=== PATIENT | male | born 1960 | race Caucasian/White ===

== ENCOUNTER 2019-01-06 07:59 | Emergency (ER) | payer OTHER ==
[~2019-01-06] VITALS: Ht 177.8 cm; Wt 113.4 kg
--- OUTSIDE RECORDS SUMMARY | 2019-01-06 08:04 | XMS REPORT | Continuity of Care Document ---
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 patients with extremes of body mass index for purposes of drug dosing, the eGFR should be multiplied by the estimated BMI. [facility] CHEM PANEL CO2 26 24 - 32 10/09/2017 [facility] CHEM PANEL Sodium Lvl 140 135 - 145 10/09/2017 [facility] CHEM PANEL Chloride Lvl 105 95 - 109 10/09/2017 [facility] CHEM PANEL Potassium Lvl 4.0 3.5 - 5.1 10/09/2017 [facility] CHEM PANEL Alk Phos 113 39 - 136 10/09/2017 [facility] CHEM PANEL ALT 54 0 - 65 10/09/2017 [facility] CHEM PANEL AST 25 0 - 37 10/09/2017 [facility] CHEM PANEL Creatinine Lvl 0.99 0.50 - 1.40 10/09/2017 [facility] CHEM PANEL Glucose Lvl 96 70 - 99 10/09/2017 [facility] CHEM PANEL BUN 14 7 - 22 10/09/2017 [facility] CHEM PANEL Total Protein 7.0 6.4 - 8.4 10/09/2017 [facility] CHEM PANEL Albumin Lvl 3.4 3.5 - 5.0 10/09/2017 [facility] CHEM PANEL Calcium Lvl 8.7 8.5 - 10.5 10/09/2017 [facility] CHEM PANEL Bili Total 0.5 0.2 - 1.3 10/09/2017 [facility] HEMATOLOGY Eosinophils # 0.1 0.0 - 0.5 10/09/2017 [facility] HEMATOLOGY Monocytes # 0.4 0.0 - 0.8 10/09/2017 [facility] HEMATOLOGY Lymphocytes # 1.9 1.0 - 5.5 10/09/2017 [facility] HEMATOLOGY Segs-Bands # 5.2 1.5 - 8.1 10/09/2017 [facility] HEMATOLOGY Basophils 0.3 0.0 - 1.0 10/09/2017 [facility] HEMATOLOGY Eosinophils 1.6 0.0 - 4.0 10/09/2017 [facility] HEMATOLOGY Monocytes 5.8 2.0 - 12.0 10/09/2017 [facility] HEMATOLOGY Lymphocytes 25.2 20.0 - 40.0 10/09/2017 [facility] HEMATOLOGY Segs 67.1 45.0 - 75.0 10/09/2017 [facility] HEMATOLOGY Hct 46.3 42.0 - 54.0 10/09/2017 [facility] HEMATOLOGY MCH 28.6 27.0 - 31.0 10/09/2017 [facility] HEMATOLOGY MCV 84.9 80.0 - 94.0 10/09/2017 [facility] MCHC 33.7 32.0 - 36.0 10/09/2017 [facility] RDW 13.0 11.5 - 14.5 10/09/2017 [facility] HEMATOLOGY MPV 7.3 7.4 - 10.4 10/09/2017 [facility] Platelet 303 133 - 450 10/09/2017 [facility] RBC 5.45 4.70 - 6.10 10/09/2017 [facility] WBC 7.6 3.7 - 10.4 10/09/2017 [facility] Hgb 15.6 14.0 - 18.0 10/09/2017 [facility] CARDIAC ENZYMES Troponin-I <0.02 0.00 - 0.40 07/02/2017 [facility] CHEM PANEL Lipase Lvl 78 73 - 393 07/02/2017 [facility] ELECTROLYTES AGAP 11.0 10.0 - 20.0 07/02/2017 [facility] ELECTROLYTES A/G Ratio 0.9 0.7 - 1.6 07/02/2017 [facility] ELECTROLYTES Globulin 3.9 2.7 - 4.2 07/02/2017 [facility] ELECTROLYTES B/C Ratio 10 6 - 25 07/02/2017 [facility] ELECTROLYTES eGFR 79 07/02/2017 Result Comment: The eGFR is calculated using the CKD-EPI formula. In most young, healthy individuals the eGFR will be >90 mL/min/1.73m2. The eGFR declines with age. An eGFR of 60-89 may be normal in some populations, particularly the elderly, for whom the CKD-EPI formula has not been extensively validated. Use of the eGFR is not recommended in the following populations:

Individuals with unstable creatinine concentrations, including patients and those with serious co-morbid conditions.

Patients with extremes in muscle mass or diet.

The data above are obtained from the National Kidney Disease Education Program (NKDEP) which additionally recommends that when the eGFR is used in patients with extremes of body mass index for purposes of drug dosing, the eGFR should be multiplied by the estimated BMI. [facility] ELECTROLYTES Creatinine Lvl 1.04 0.50 - 1.40 07/02/2017 [facility] ELECTROLYTES BUN 10 7 - 22 07/02/2017 [facility] ELECTROLYTES Glucose Lvl 96 70 - 99 07/02/2017 [facility] ELECTROLYTES Sodium Lvl 139 135 - 145 07/02/2017 [facility] ELECTROLYTES Chloride Lvl 102 95 - 109 07/02/2017 [facility] ELECTROLYTES Potassium Lvl 4.0 3.5 - 5.1 07/02/2017 [facility] ELECTROLYTES Albumin Lvl 3.4 3.5 - 5.0 07/02/2017 [facility] ELECTROLYTES Total Protein 7.3 6.4 - 8.4 07/02/2017 [facility] ELECTROLYTES Calcium Lvl 8.8 8.5 - 10.5 07/02/2017 [facility] ELECTROLYTES CO2 30 24 - 32 07/02/2017 [facility] ELECTROLYTES ALT 24 0 - 65 07/02/2017 [facility] ELECTROLYTES Bili Total 1.0 0.2 - 1.3 07/02/2017 [facility] ELECTROLYTES Alk Phos 99 39 - 136 07/02/2017 [facility] ELECTROLYTES AST 15 0 - 37 07/02/2017 [facility] HEMATOLOGY Hgb 15.9 14.0 - 18.0 07/02/2017 [facility] HEMATOLOGY RBC 5.51 4.70 - 6.10 07/02/2017 [facility] HEMATOLOGY WBC 8.3 3.7 - 10.4 07/02/2017 [facility] HEMATOLOGY RDW 12.5 11.5 - 14.5 07/02/2017 [facility] HEMATOLOGY Platelet 299 133 - 450 07/02/2017 [facility] HEMATOLOGY MCHC 33.8 32.0 - 36.0 07/02/2017 [facility] HEMATOLOGY MCH 28.9 27.0 - 31.0 07/02/2017 [facility] HEMATOLOGY MCV 85.5 80.0 - 94.0 07/02/2017 [facility] HEMATOLOGY Hct 47.1 42.0 - 54.0 07/02/2017 [facility] HEMATOLOGY MPV 7.6 7.4 - 10.4 07/02/2017 [facility] HEMATOLOGY Eosinophils # 0.3 0.0 - 0.5 07/02/2017 [facility] HEMATOLOGY Monocytes # 0.5 0.0 - 0.8 07/02/2017 [facility] HEMATOLOGY Lymphocytes # 2.4 1.0 - 5.5 07/02/2017 [facility] HEMATOLOGY Eosinophils 4.1 0.0 - 4.0 07/02/2017 [facility] HEMATOLOGY Basophils 0.2 0.0 - 1.0 07/02/2017 [facility] HEMATOLOGY Segs-Bands # 5.1 1.5 - 8.1 07/02/2017 [facility] HEMATOLOGY Monocytes 6.6 2.0 - 12.0 07/02/2017 [facility] HEMATOLOGY Lymphocytes 29.0 20.0 - 40.0 07/02/2017 [facility] HEMATOLOGY Segs 60.1 45.0 - 75.0 07/02/2017 [facility] URINE AND STOOL UA Turbidity Clear (07/02/17 10:46 AM) Clear 07/02/2017 [facility] URINE AND STOOL UA Color Yellow *NA* (07/02/17 10:46 AM) Yellow 07/02/2017 [facility] URINE AND STOOL UA Urobilinogen 0.2 0.1 - 1.0 07/02/2017 [facility] URINE AND STOOL UA Bili Negative *NA* (07/02/17 10:46 AM) Negative 07/02/2017 [facility] URINE AND STOOL UA Blood Negative (07/02/17 10:46 AM) Negative 07/02/2017 [facility] URINE AND STOOL UA Ketones Negative mg/dL Negative mg/dL 07/02/2017 [facility] URINE AND STOOL UA Spec Grav 1.010 <=1.030 07/02/2017 [facility] URINE AND STOOL UA Protein Negative mg/dL Negative mg/dL 07/02/2017 [facility] URINE AND STOOL UA Glucose Negative mg/dL Negative mg/dL 07/02/2017 [facility] URINE AND STOOL UA pH 6.5 5.0 - 8.0 07/02/2017 [facility] URINE AND STOOL UA Leuk Est Negative (07/02/17 10:46 AM) Negative 07/02/2017 [facility] URINE AND STOOL UA Nitrite Negative (07/02/17 10:46 AM) Negative 07/02/2017 [facility] URINE AND STOOL UA Bacteria None Seen (07/02/17 10:46 AM) None Seen 07/02/2017 [facility] URINE AND STOOL UA Mucus Moderate /LPF None Seen /LPF 07/02/2017 [facility] URINE AND STOOL UA Sq Epi Rare /LPF Few /LPF 07/02/2017 [facility] URINE AND STOOL UA RBC None Seen (07/02/17 10:46 AM) 0 - 2 07/02/2017 [facility] URINE AND STOOL UA WBC None Seen (07/02/17 10:46 AM) None Seen 07/02/2017 [facility] CHEM PANEL Calcium Lvl 8.1 8.5 - 10.5 07/01/2017 [facility] CHEM PANEL CO2 28 24 - 32 07/01/2017 [facility] CHEM PANEL AGAP 9.1 10.0 - 20.0 07/01/2017 [facility] CHEM PANEL eGFR 82 07/01/2017 Result Comment: The eGFR is calculated using the CKD-EPI formula. In most young, healthy individuals the eGFR will be >90 mL/min/1.73m2. The eGFR declines with age. An eGFR of 60-89 may be normal in some populations, particularly the elderly, for whom the CKD-EPI formula has not been extensively validated. Use of the eGFR is not recommended in the following populations:

Individuals with unstable creatinine concentrations, including patients and those with serious co-morbid conditions.

Patients with extremes in muscle mass or diet.

The data above are obtained from the National Kidney Disease Education Program (NKDEP) which additionally recommends that when the eGFR is used in patients with extremes of body mass index for purposes of drug dosing, the eGFR should be multiplied by the estimated BMI. [facility] CHEM PANEL Glucose Lvl 98 70 - 99 07/01/2017 [facility] CHEM PANEL BUN 12 7 - 22 07/01/2017 [facility] CHEM PANEL Potassium Lvl 4.1 3.5 - 5.1 07/01/2017 [facility] CHEM PANEL Sodium Lvl 140 135 - 145 07/01/2017 [facility] CHEM PANEL Chloride Lvl 107 95 - 109 07/01/2017 [facility] CHEM PANEL Creatinine Lvl 1.01 0.50 - 1.40 07/01/2017 [facility] CHEM PANEL Magnesium Lvl 2.1 1.8 - 2.4 07/01/2017 [facility] CHEM PANEL Phosphorus 2.8 2.5 - 4.5 07/01/2017 [facility] HEMATOLOGY MCH 29.2 27.0 - 31.0 07/01/2017 [facility] HEMATOLOGY RDW 13.4 11.5 - 14.5 07/01/2017 [facility] HEMATOLOGY MCHC 34.2 32.0 - 36.0 07/01/2017 [facility] HEMATOLOGY MPV 7.3 7.4 - 10.4 07/01/2017 [facility] HEMATOLOGY Platelet 245 133 - 450 07/01/2017 [facility] HEMATOLOGY RBC 5.31 4.70 - 6.10 07/01/2017 [facility] HEMATOLOGY WBC 9.3 3.7 - 10.4 07/01/2017 [facility] HEMATOLOGY MCV 85.4 80.0 - 94.0 07/01/2017 [facility] HEMATOLOGY Hct 45.3 42.0 - 54.0 07/01/2017 [facility] HEMATOLOGY Hgb 15.5 14.0 - 18.0 07/01/2017 [facility] HEMATOLOGY INR 0.99 0.85 - 1.17 07/01/2017 [facility] HEMATOLOGY PTT 31.5 22.9 - 35.8 07/01/2017 [facility] HEMATOLOGY PT 13.1 12.0 - 14.7 07/01/2017 [facility] HEMATOLOGY Segs 62.5 45.0 - 75.0 07/01/2017 [facility] HEMATOLOGY Lymphocytes 28.1 20.0 - 40.0 07/01/2017 [facility] HEMATOLOGY Eosinophils 2.3 0.0 - 4.0 07/01/2017 [facility] HEMATOLOGY Segs-Bands # 5.8 1.5 - 8.1 07/01/2017 [facility] HEMATOLOGY Eosinophils # 0.2 0.0 - 0.5 07/01/2017 [facility] HEMATOLOGY Monocytes # 0.6 0.0 - 0.8 07/01/2017 [facility] HEMATOLOGY Monocytes 6.8 2.0 - 12.0 07/01/2017 [facility] HEMATOLOGY Basophils 0.3 0.0 - 1.0 07/01/2017 [facility] HEMATOLOGY Lymphocytes # 2.6 1.0 - 5.5 07/01/2017 [facility] CARDIAC ENZYMES CK MB <1.0 0.5 - 3.6 06/30/2017 [facility] CARDIAC ENZYMES Total CK 60 12 - 191 06/30/2017 [facility] CARDIAC ENZYMES Troponin-I <0.02 0.00 - 0.40 06/30/2017 [facility] CARDIAC ENZYMES CK MB Index <1.7 0.0 - 2.5 06/30/2017 [facility] CHEM PANEL Lipase Lvl 78 73 - 393 06/30/2017 [facility] CHEM PANEL eGFR 77 06/30/2017 Result Comment: The eGFR is calculated using the CKD-EPI formula. In most young, healthy individuals the eGFR will be >90 mL/min/1.73m2. The eGFR declines with age. An eGFR of 60-89 may be normal in some populations, particularly the elderly, for whom the CKD-EPI formula has not been extensively validated. Use of the eGFR is not recommended in the following populations:

Individuals with unstable creatinine concentrations, including patients and those with serious co-morbid conditions.

Patients with extremes in muscle mass or diet.

The data above are obtained from the National Kidney Disease Education Program (NKDEP) which additionally recommends that when the eGFR is used in patients with extremes of body mass index for purposes of drug dosing, the eGFR should be multiplied by the estimated BMI. [facility] CHEM PANEL Albumin Lvl 3.3 3.5 - 5.0 06/30/2017 [facility] CHEM PANEL ALT 34 0 - 65 06/30/2017 [facility] CHEM PANEL AST 16 0 - 37 06/30/2017 [facility] CHEM PANEL Alk Phos 111 39 - 136 06/30/2017 [facility] CHEM PANEL B/C Ratio 12 6 - 25 06/30/2017 [facility] CHEM PANEL Globulin 4.0 2.7 - 4.2 06/30/2017 [facility] CHEM PANEL A/G Ratio 0.8 0.7 - 1.6 06/30/2017 [facility] CHEM PANEL Bili Total 1.0 0.2 - 1.3 06/30/2017 [facility] CHEM PANEL AGAP 11.1 10.0 - 20.0 06/30/2017 [facility] CHEM PANEL Glucose Lvl 117 70 - 99 06/30/2017 [facility] CHEM PANEL Potassium Lvl 4.1 3.5 - 5.1 06/30/2017 [facility] CHEM PANEL Sodium Lvl 138 135 - 145 06/30/2017 [facility] CHEM PANEL Chloride Lvl 106 95 - 109 06/30/2017 [facility] CHEM PANEL Creatinine Lvl 1.07 0.50 - 1.40 06/30/2017 [facility] CHEM PANEL CO2 25 24 - 32 06/30/2017 [facility] CHEM PANEL Total Protein 7.3 6.4 - 8.4 06/30/2017 [facility] CHEM PANEL Calcium Lvl 8.8 8.5 - 10.5 06/30/2017 [facility] CHEM PANEL BUN 13 7 - 22 06/30/2017 [facility] HEMATOLOGY Platelet 318 133 - 450 06/30/2017 [facility] HEMATOLOGY MPV 7.6 7.4 - 10.4 06/30/2017 [facility] HEMATOLOGY MCHC 33.7 32.0 - 36.0 06/30/2017 [facility] HEMATOLOGY RDW 12.7 11.5 - 14.5 06/30/2017 [facility] HEMATOLOGY MCH 28.4 27.0 - 31.0 06/30/2017 [facility] HEMATOLOGY MCV 84.2 80.0 - 94.0 06/30/2017 [facility] HEMATOLOGY Hct 49.6 42.0 - 54.0 06/30/2017 [facility] HEMATOLOGY Hgb 16.7 14.0 - 18.0 06/30/2017 [facility] HEMATOLOGY RBC 5.89 4.70 - 6.10 06/30/2017 [facility] HEMATOLOGY WBC 11.0 3.7 - 10.4 06/30/2017 [facility] HEMATOLOGY Lymphocytes 23.4 20.0 - 40.0 06/30/2017 [facility] HEMATOLOGY Monocytes 5.1 2.0 - 12.0 06/30/2017 [facility] HEMATOLOGY Eosinophils 1.8 0.0 - 4.0 06/30/2017 [facility] HEMATOLOGY Segs 69.5 45.0 - 75.0 06/30/2017 [facility] HEMATOLOGY Monocytes # 0.6 0.0 - 0.8 06/30/2017 [facility] HEMATOLOGY Eosinophils # 0.2 0.0 - 0.5 06/30/2017 [facility] HEMATOLOGY Basophils 0.2 0.0 - 1.0 06/30/2017 [facility] HEMATOLOGY Segs-Bands # 7.6 1.5 - 8.1 06/30/2017 [facility] HEMATOLOGY Lymphocytes # 2.6 1.0 - 5.5 06/30/2017 [facility] URINE AND STOOL UA Leuk Est Negative (02/26/17 4:36 PM) Negative 02/26/2017 [facility] URINE AND STOOL UA Glucose Negative (02/26/17 4:36 PM) Negative 02/26/2017 [facility] URINE AND STOOL UA Protein Negative (02/26/17 4:36 PM) Negative 02/26/2017 [facility] URINE AND STOOL UA Nitrite Negative (02/26/17 4:36 PM) Negative 02/26/2017 [facility] URINE AND STOOL UA Bili Negative *NA* (02/26/17 4:36 PM) Negative 02/26/2017 [facility] URINE AND STOOL UA Urobilinogen 0.2 0.1 - 1.0 02/26/2017 [facility] URINE AND STOOL UA Blood Negative (02/26/17 4:36 PM) Negative 02/26/2017 [facility] URINE AND STOOL UA Spec Grav <=1.005 *NA* (02/26/17 4:36 PM) <=1.030 02/26/2017 [facility] URINE AND STOOL UA Ketones Negative *NA* (02/26/17 4:36 PM) Negative 02/26/2017 [facility] URINE AND STOOL UA Color Yellow *NA* (02/26/17 4:36 PM) Yellow 02/26/2017 [facility] URINE AND STOOL UA pH 6.0 5.0 - 8.0 02/26/2017 [facility] URINE AND STOOL UA Turbidity Clear (02/26/17 4:36 PM) Clear 02/26/2017 [facility] URINE AND STOOL UA Bacteria None Seen (02/26/17 4:36 PM) None Seen 02/26/2017 [facility] URINE AND STOOL UA WBC None Seen (02/26/17 4:36 PM) None Seen 02/26/2017 [facility] URINE AND STOOL UA RBC None Seen (02/26/17 4:36 PM) 0 - 2 02/26/2017 [facility] URINE AND STOOL UA Sq Epi None Seen (02/26/17 4:36 PM) Few 02/26/2017 [facility] CARDIAC ENZYMES Troponin-I <0.02 0.00 - 0.40 02/26/2017 [facility] CARDIAC ENZYMES Total CK 80 12 - 191 02/26/2017 [facility] CHEM PANEL A/G Ratio 0.9 0.7 - 1.6 02/26/2017 [facility] CHEM PANEL Globulin 3.9 2.7 - 4.2 02/26/2017 [facility] CHEM PANEL B/C Ratio 17 6 - 25 02/26/2017 [facility] CHEM PANEL AGAP 14.8 10.0 - 20.0 02/26/2017 [facility] CHEM PANEL eGFR 75 02/26/2017 Result Comment: The eGFR is calculated using the CKD-EPI formula. In most young, healthy individuals the eGFR will be >90 mL/min/1.73m2. The eGFR declines with age. An eGFR of 60-89 may be normal in some populations, particularly the elderly, for whom the CKD-EPI formula has not been extensively validated. Use of the eGFR is not recommended in the following populations:

Individuals with unstable creatinine concentrations, including patients and those with serious co-morbid conditions.

Patients with extremes in muscle mass or diet.

The data above are obtained from the National Kidney Disease Education Program (NKDEP) which additionally recommends that when the eGFR is used in patients with extremes of body mass index for purposes of drug dosing, the eGFR should be multiplied by the estimated BMI. [facility] CHEM PANEL Glucose Lvl 94 70 - 99 02/26/2017 [facility] CHEM PANEL Alk Phos 103 39 - 136 02/26/2017 [facility] CHEM PANEL BUN 18 7 - 22 02/26/2017 [facility] CHEM PANEL Creatinine Lvl 1.09 0.50 - 1.40 02/26/2017 [facility] CHEM PANEL Potassium Lvl 3.8 3.5 - 5.1 02/26/2017 [facility] CHEM PANEL Sodium Lvl 140 135 - 145 02/26/2017 [facility] CHEM PANEL Chloride Lvl 106 95 - 109 02/26/2017 [facility] CHEM PANEL Albumin Lvl 3.6 3.5 - 5.0 02/26/2017 [facility] CHEM PANEL ALT 35 0 - 65 02/26/2017 [facility] CHEM PANEL Bili Total 0.5 0.2 - 1.3 02/26/2017 [facility] CHEM PANEL CO2 23 24 - 32 02/26/2017 [facility] CHEM PANEL Calcium Lvl 8.4 8.5 - 10.5 02/26/2017 [facility] CHEM PANEL Total Protein 7.5 6.4 - 8.4 02/26/2017 [facility] CHEM PANEL AST 18 0 - 37 02/26/2017 [facility] HEMATOLOGY Basophils 0.2 0.0 - 1.0 02/26/2017 [facility] HEMATOLOGY Monocytes # 0.5 0.0 - 0.8 02/26/2017 [facility] HEMATOLOGY Segs-Bands # 5.8 1.5 - 8.1 02/26/2017 [facility] HEMATOLOGY Lymphocytes # 2.3 1.0 - 5.5 02/26/2017 [facility] HEMATOLOGY Segs 65.1 45.0 - 75.0 02/26/2017 [facility] HEMATOLOGY Lymphocytes 25.6 20.0 - 40.0 02/26/2017 [facility] HEMATOLOGY Eosinophils 3.2 0.0 - 4.0 02/26/2017 [facility] HEMATOLOGY Monocytes 5.9 2.0 - 12.0 02/26/2017 [facility] HEMATOLOGY Eosinophils # 0.3 0.0 - 0.5 02/26/2017 [facility] D-Dimer 0.42 02/26/2017 [facility] MPV 7.7 7.4 - 10.4 02/26/2017 [facility] Platelet 350 133 - 450 02/26/2017 [facility] RDW 12.1 11.5 - 14.5 02/26/2017 [facility] RBC 5.22 4.70 - 6.10 02/26/2017 [facility] WBC 8.9 3.7 - 10.4 02/26/2017 [facility] MCHC 33.8 32.0 - 36.0 02/26/2017 [facility] MCV 85.6 80.0 - 94.0 02/26/2017 [facility] Hct 44.7 42.0 - 54.0 02/26/2017 [facility] Hgb 15.1 14.0 - 18.0 02/26/2017 [facility] MCH 29.0 27.0 - 31.0 02/26/2017 [facility] ELECTROLYTES Sodium Lvl 140 135 - 145 02/09/2017 [facility] ELECTROLYTES Potassium Lvl 4.0 3.5 - 5.1 02/09/2017 [facility] ELECTROLYTES Creatinine Lvl 0.86 0.50 - 1.40 02/09/2017 [facility] ELECTROLYTES Glucose Lvl 104 70 - 99 02/09/2017 [facility] ELECTROLYTES BUN 14 7 - 22 02/09/2017 [facility] ELECTROLYTES Chloride Lvl 106 95 - 109 02/09/2017 [facility] ELECTROLYTES CO2 24 24 - 32 02/09/2017 [facility] ELECTROLYTES Calcium Lvl 8.6 8.5 - 10.5 02/09/2017 [facility] ELECTROLYTES AGAP 14.0 10.0 - 20.0 02/09/2017 [facility] ELECTROLYTES eGFR 97 02/09/2017 Result Comment: The eGFR is calculated using the CKD-EPI formula. In most young, healthy individuals the eGFR will be >90 mL/min/1.73m2. The eGFR declines with age. An eGFR of 60-89 may be normal in some populations, particularly the elderly, for whom the CKD-EPI formula has not been extensively validated. Use of the eGFR is not recommended in the following populations:

Individuals with unstable creatinine concentrations, including patients and those with serious co-morbid conditions.

Patients with extremes in muscle mass or diet.

The data above are obtained from the National Kidney Disease Education Program (NKDEP) which additionally recommends that when the eGFR is used in patients with extremes of body mass index for purposes of drug dosing, the eGFR should be multiplied by the estimated BMI. [facility] BLOOD BANK RESULTS ABO/Rh A POS 02/08/2017 [facility] BLOOD BANK RESULTS Antibody Scrn Negative (02/08/17 7:20 AM) 02/08/2017 [facility] CHEM PANEL eGFR 89 02/08/2017 Result Comment: The eGFR is calculated using the CKD-EPI formula. In most young, healthy individuals the eGFR will be >90 mL/min/1.73m2. The eGFR declines with age. An eGFR of 60-89 may be normal in some populations, particularly the elderly, for whom the CKD-EPI formula has not been extensively validated. Use of the eGFR is not recommended in the following populations:

Individuals with unstable creatinine concentrations, including patients and those with serious co-morbid conditions.

Patients with extremes in muscle mass or diet.

The data above are obtained from the National Kidney Disease Education Program (NKDEP) which additionally recommends that when the eGFR is used in patients with extremes of body mass index for purposes of drug dosing, the eGFR should be multiplied by the estimated BMI. [facility] CHEM PANEL CO2 30 24 - 32 02/08/2017 [facility] CHEM PANEL Creatinine Lvl 0.95 0.50 - 1.40 02/08/2017 [facility] CHEM PANEL Chloride Lvl 106 95 - 109 02/08/2017 [facility] CHEM PANEL Potassium Lvl 4.5 3.5 - 5.1 02/08/2017 [facility] CHEM PANEL Sodium Lvl 142 135 - 145 02/08/2017 [facility] CHEM PANEL Calcium Lvl 9.3 8.5 - 10.5 02/08/2017 [facility] CHEM PANEL Glucose Lvl 104 70 - 99 02/08/2017 [facility] CHEM PANEL BUN 17 7 - 22 02/08/2017 [facility] CHEM PANEL AGAP 10.5 10.0 - 20.0 02/08/2017 [facility] HEMATOLOGY Platelet 287 133 - 450 02/08/2017 [facility] HEMATOLOGY MPV 7.0 7.4 - 10.4 02/08/2017 [facility] HEMATOLOGY RDW 13.2 11.5 - 14.5 02/08/2017 [facility] HEMATOLOGY RBC 5.09 4.70 - 6.10 02/08/2017 [facility] HEMATOLOGY Hgb 14.7 14.0 - 18.0 02/08/2017 [facility] HEMATOLOGY MCHC 34.1 32.0 - 36.0 02/08/2017 [facility] HEMATOLOGY MCH 28.8 27.0 - 31.0 02/08/2017 [facility] HEMATOLOGY Hct 42.9 42.0 - 54.0 02/08/2017 [facility] HEMATOLOGY MCV 84.4 80.0 - 94.0 02/08/2017 [facility] HEMATOLOGY WBC 7.2 3.7 - 10.4 02/08/2017 [facility] HEMATOLOGY PT 12.9 12.0 - 14.7 02/08/2017 [facility] HEMATOLOGY PTT 30.0 22.9 - 35.8 02/08/2017 [facility] HEMATOLOGY INR 0.95 0.85 - 1.17 02/08/2017 [facility] HEMATOLOGY Lymphocytes # 2.7 1.0 - 5.5 02/08/2017 [facility] HEMATOLOGY Monocytes # 0.6 0.0 - 0.8 02/08/2017 [facility] HEMATOLOGY Eosinophils # 0.3 0.0 - 0.5 02/08/2017 [facility] HEMATOLOGY Basophils 0.6 0.0 - 1.0 02/08/2017 [facility] HEMATOLOGY Segs-Bands # 3.6 1.5 - 8.1 02/08/2017 [facility] HEMATOLOGY Lymphocytes 37.4 20.0 - 40.0 02/08/2017 [facility] HEMATOLOGY Monocytes 7.8 2.0 - 12.0 02/08/2017 [facility] HEMATOLOGY Eosinophils 4.2 0.0 - 4.0 02/08/2017 [facility] HEMATOLOGY Segs 50.0 45.0 - 75.0 02/08/2017 [facility] HEMATOLOGY Anisocyte 1+ *ABN* (02/08/17 7:20 AM) None Seen 02/08/2017 [facility] URINE AND STOOL UA Glucose Negative (01/19/17 9:35 PM) Negative 01/20/2017 [facility] URINE AND STOOL UA Spec Grav >=1.030 *ABN* (01/19/17 9:35 PM) <=1.030 01/20/2017 [facility] URINE AND STOOL UA Protein Negative (01/19/17 9:35 PM) Negative 01/20/2017 [facility] URINE AND STOOL UA Ketones Negative *NA* (01/19/17 9:35 PM) Negative 01/20/2017 [facility] URINE AND STOOL UA pH 5.5 5.0 - 8.0 01/20/2017 [facility] URINE AND STOOL UA Color Yellow *NA* (01/19/17 9:35 PM) Yellow 01/20/2017 [facility] URINE AND STOOL UA Turbidity Clear (01/19/17 9:35 PM) Clear 01/20/2017 [facility] URINE AND STOOL UA WBC 0-2 /HPF None Seen /HPF 01/20/2017 [facility] URINE AND STOOL UA Sq Epi Occasional /LPF Few /LPF 01/20/2017 [facility] URINE AND STOOL UA Bacteria None Seen (01/19/17 9:35 PM) None Seen 01/20/2017 [facility] URINE AND STOOL UA RBC None Seen (01/19/17 9:35 PM) 0 - 2 01/20/2017 [facility] URINE AND STOOL UA Blood Negative (01/19/17 9:35 PM) Negative 01/20/2017 [facility] URINE AND STOOL UA Bili Negative *NA* (01/19/17 9:35 PM) Negative 01/20/2017 [facility] URINE AND STOOL UA Urobilinogen 0.2 0.1 - 1.0 01/20/2017 [facility] URINE AND STOOL UA Leuk Est Negative (01/19/17 9:35 PM) Negative 01/20/2017 [facility] URINE AND STOOL UA Nitrite Negative (01/19/17 9:35 PM) Negative 01/20/2017 [facility] CARDIAC ENZYMES CK MB Index <1.3 0.0 - 2.5 01/20/2017 [facility] CARDIAC ENZYMES CK MB <1.0 0.5 - 3.6 01/20/2017 [facility] CARDIAC ENZYMES Total CK 76 12 - 191 01/20/2017 [facility] CARDIAC ENZYMES Troponin-I <0.02 0.00 - 0.40 01/20/2017 [facility] CHEM PANEL eGFR 70 01/20/2017 Result Comment: The eGFR is calculated using the CKD-EPI formula. In most young, healthy individuals the eGFR will be >90 mL/min/1.73m2. The eGFR declines with age. An eGFR of 60-89 may be normal in some populations, particularly the elderly, for whom the CKD-EPI formula has not been extensively validated. Use of the eGFR is not recommended in the following populations:

Individuals with unstable creatinine concentrations, including patients and those with serious co-morbid conditions.

Patients with extremes in muscle mass or diet.

The data above are obtained from the National Kidney Disease Education Program (NKDEP) which additionally recommends that when the eGFR is used in patients with extremes of body mass index for purposes of drug dosing, the eGFR should be multiplied by the estimated BMI. [facility] CHEM PANEL B/C Ratio 17 6 - 25 01/20/2017 [facility] CHEM PANEL Globulin 3.7 2.7 - 4.2 01/20/2017 [facility] CHEM PANEL AGAP 15.9 10.0 - 20.0 01/20/2017 [facility] CHEM PANEL Total Protein 7.3 6.4 - 8.4 01/20/2017 [facility] CHEM PANEL AST 21 0 - 37 01/20/2017 [facility] CHEM PANEL Calcium Lvl 9.1 8.5 - 10.5 01/20/2017 [facility] CHEM PANEL Bili Total 0.3 0.2 - 1.3 01/20/2017 [facility] CHEM PANEL A/G Ratio 1.0 0.7 - 1.6 01/20/2017 [facility] CHEM PANEL ALT 40 0 - 65 01/20/2017 [facility] CHEM PANEL Albumin Lvl 3.6 3.5 - 5.0 01/20/2017 [facility] CHEM PANEL Alk Phos 97 39 - 136 01/20/2017 [facility] CHEM PANEL Glucose Lvl 100 70 - 99 01/20/2017 [facility] CHEM PANEL BUN 20 7 - 22 01/20/2017 [facility] CHEM PANEL Creatinine Lvl 1.16 0.50 - 1.40 01/20/2017 [facility] CHEM PANEL Sodium Lvl 142 135 -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 appear clear. If there is further concern for intracranial pathology or acute stroke, MRI of the brain may be performed for complete assessment. IMPRESSION: 1. No acute intracranial abnormality. No acute intracranial hemorrhage. SL: [id number] 02/26/2017 [facility] Chest 2 views DX EXAM: XR CHEST 2 VIEWS DATE: 02/09/2017 3:00 AM CDT INDICATION: Chest pain - Status post PFO/ASD Closure TECHNIQUE: PA and lateral chest radiographs DISCUSSION: Lungs are clear. No pleural effusions. ASD closure device is projected in expected position. Heart size is within normal limits. No pneumothorax. IMPRESSION: No acute findings in the chest. 02/09/2017 [facility] Chest 1view DX Clinical Indication: - cardiac disease Comparison: Comparison is made to chest radiograph examination dated 01/09/2017. FINDINGS: The cardiomediastinal silhouette is within normal limits for appearance. The thoracic aorta appears mildly tortuous. No focal pulmonary consolidation, pneumothorax or pleural effusion. Midline trachea. IMPRESSION: 1. No acute cardiopulmonary process. SL: [id number] 01/19/2017 [facility] Brain w/wo contrast MRI EXAM: MRI BRAIN WITH AND WITHOUT CONTRAST DATE: 01/09/2017 at 1034 hours INDICATION: Weakness and abnormal speech. COMPARISON: CT brain and CTA brain and neck 01/09/2017 TECHNIQUE: Multiplanar, multisequence non-contrast MRI images of the brain. Multiplanar imaging is subsequently obtained following intravenous gadolinium contrast. IV contrast: 15 mL Dotarem FINDINGS: Diffusion-weighted images and correlative maps of apparent diffusion coefficient demonstrate no acute ischemic change. Routine non-contrast imaging demonstrates no mass lesion or structural abnormality. The ventricles and extra-axial spaces are normal. There is no acute or chronic hemorrhagic change. The intracranial arterial and venous structures are normal in appearance. Scattered foci of increased T2/FLAIR signal in the subcortical white matter consistent with chronic microangiopathic change. The visible paranasal sinuses and skull base are unremarkable. Post-contrast images reveal no abnormal parenchymal or leptomeningeal enhancement. The vascular structures enhance uneventfully. IMPRESSION: 1. No acute intracranial abnormality. 2. Mild chronic microvascular ischemic changes. 01/09/2017 [facility] Chest 1view DX EXAM: XR CHEST 1 VIEW DATE: 01/09/2017 8:01 AM CDT. INDICATION: Weakness. COMPARISON: None. TECHNIQUE: AP chest. UT SECTION: ER FINDINGS: Lines, tubes and hardware: None. Lungs and pleura: No pulmonary or pleural based abnormality is identified. Pulmonary vascularity is normal. Heart and mediastinum: The heart size is normal for technique. The aorta is mildly tortuous. Bones: No acute skeletal abnormality is identified. IMPRESSION: No acute radiographic abnormality. 01/09/2017 [facility] Brain/Neck Stroke perfusion CTA EXAM: CTA BRAIN EXAM: CTA NECK EXAM: CT PERFUSION BRAIN DATE: 01/09/2017 8:08 AM CDT INDICATION: - weakness COMPARISON: None. TECHNIQUE: - Dynamic CT perfusion images on a limited area of the brain parenchyma are performed during bolus injection of iodinated contrast material. Color maps of relative cerebral blood flow, relative cerebral blood volume, time to peak, and mean transit time are created on an independent workstation and are submitted along with the source image data. -Rapid acquisition spiral CT images of the brain and neck were obtained between the aortic arch and the cranial vertex during intravenous infusion of iodinated contrast for the purposes of CT angiography. 3-D CT angiographic images are created using MIP technique at the acquisition workstation. The source images are also presented for interpretation. IV contrast: 100 mL Visipaque 320 DLP: 3489 mGy-cm FINDINGS: NECK CTA: Aortic arch: Brachiocephalic and left common carotid arteries have a common origin from the aortic arch, a normal developmental variant. No origin stenosis is identified. Focal area of calcification at the origin of the left vertebral artery is present. Carotid arteries: The cervical common carotid arteries and cervical internal carotid arteries have a normal course, caliber, and contour. Focal area of calcification at the carotid bifurcation on the left. No hemodynamically significant stenosis of the carotid bifurcations or internal carotid arteries is present by NASCET criteria. There is no evidence of vascular injury. Vertebral arteries: The left vertebral artery is larger in caliber compared to the right. The vertebral arteries have a normal course, caliber and contour. Multiple hypoattenuating lesions in the right thyroid measuring up to 0.7 x 0.7 cm. Other soft tissues of the neck and incidental structures are normal. BRAIN CTA: Anterior circulation: Eccentric atherosclerotic calcification in the cavernous segment of the right internal carotid artery without flow-limiting stenosis. Focal atherosclerotic calcification with small soft plaque or associated thrombus is noted in the supraclinoid segment of the left internal carotid artery. Otherwise normal appearance and a standard branching pattern. No branch occlusion, vascular injury, arteritis, vascular malformation or aneurysm is identified. Posterior circulation: Punctate calcification is present at the left V4 segment. Otherwise normal appearance and a standard branching pattern. No branch occlusion, vascular injury, arteritis, vascular malformation or aneurysm is identified. The [place] of [place] is normal. There is no evidence of cortical collateral circulation, collateral score is not applicable. The deep cerebral veins and major venous sinuses are normal. The brain parenchyma and other incidental structures are unremarkable. CT PERFUSION: There is no regional abnormality in cerebral blood flow, cerebral blood volume, or transit time in the imaged areas of the brain to suggest active oligemia or infarction. RAPID Perfusion Summary: CBF (<30%) volume: 0 ml Perfusion (Tmax>6.0s) : 0 ml Mismatch volume: 0 ml Mismatch ratio: Infinite IMPRESSION: 1. Atherosclerotic calcification with soft plaque or associated intraluminal thrombus in the supraclinoid segment of left internal carotid artery. This is not flow- limiting. Atherosclerotic calcification of the cavernous segment of right internal carotid artery. 2. Normal CTA of the neck. 3. Normal CT perfusion. 4. Multiple hypoattenuating lesions in the right thyroid measuring up to 0.7 x 0.7 cm do not meet size criteria requiring further evaluation. (All qualitative and quantitative assessments of carotid bifurcation and proximal internal carotid artery stenosis are made referencing the distal internal carotid artery {NASCET criteria}.) 01/09/2017 [facility] Brain Stroke wo contrast CT EXAM: CT BRAIN WITHOUT CONTRAST DATE: 01/09/2017 8:03 AM CDT INDICATION: - weakness COMPARISON: None. TECHNIQUE: Routine axial CT images of the brain were obtained. IV contrast: None. DLP: 838 mGy-cm FINDINGS: No acute intracranial hemorrhage is present. Ventricles are normal in size. Basal cisterns are patent. No midline shift or herniation. Lazo-white differentiation is maintained. Scattered hypodense lesions in the bilateral deep white matter representing microvascular ischemic changes. ASPECTS: 10 Laterality: none Caudate: normal Internal capsule: normal Lenticular: normal Insula: normal M1: normal M2: normal M3: normal M4: normal M5: normal M6: normal The sinuses and skull base are unremarkable. IMPRESSION: No sign of acute cortical infarct or parenchymal hemorrhage. ASPECTS=10 01/09/2017 [facility] Consultation Notes No Data Provided for This Section Discharge Summaries No Data Provided for This Section History and Physicals No Data Provided for This Section Vital Signs Vital Sign Value Date Comments Source Weight 113.636 11/09/2018 [facility] BMI Calculated 35.95 11/09/2018 [facility] Height 177.8 cm 11/09/2018 [facility] Heart Rate 80 11/09/2018 [facility] Respitory Rate 18 11/09/2018 [facility] Systolic (mm Hg) 120 11/09/2018 [facility] Diastolic (mm Hg) 80 11/09/2018 [facility] Temperature Oral (F) 97.4 F 11/09/2018 [facility] Respitory Rate 18 08/12/2018 [facility] Systolic (mm Hg) 142 08/12/2018 [facility] Diastolic (mm Hg) 94 08/12/2018 [facility] Temperature Oral (F) 97.7 F 08/12/2018 [facility] Height 177.8 cm 08/12/2018 [facility] BMI Calculated 35.23 08/12/2018 [facility] Weight 111.364 08/12/2018 [facility] Systolic (mm Hg) 133 08/12/2018 [facility] Diastolic (mm Hg) 88 08/12/2018 [facility] Heart Rate 76 08/12/2018 [facility] Respitory Rate 16 08/12/2018 [facility] Temperature Oral (F) 98.2 F 08/12/2018 [facility] Respitory Rate 16 12/15/2017 [facility] Systolic (mm Hg) 110 12/15/2017 [facility] Diastolic (mm Hg) 67 12/15/2017 [facility] Respitory Rate 19 12/15/2017 [facility] Systolic (mm Hg) 107 12/15/2017 [facility] Diastolic (mm Hg) 56 12/15/2017 [facility] Temperature Oral (F) 98.2 F 12/15/2017 [facility] Systolic (mm Hg) 117 12/15/2017 [facility] Diastolic (mm Hg) 71 12/15/2017 [facility] Respitory Rate 16 12/15/2017 [facility] Height 177.8 cm 12/15/2017 [facility] BMI Calculated 35.8 12/15/2017 [facility] Weight 113.182 12/15/2017 [facility] Temperature Oral (F) 98.2 F 12/15/2017 [facility] BMI Calculated 35.8 12/14/2017 [facility] Height 177.8 cm 12/14/2017 [facility] Weight 113.182 12/14/2017 [facility] Heart Rate 71 12/14/2017 [facility] Temperature Oral (F) 98.3 F 12/14/2017 [facility] Systolic (mm Hg) 168 10/09/2017 [facility] Diastolic (mm Hg) 79 10/09/2017 [facility] 78 10/09/2017 [facility] Respitory Rate 18 10/09/2017 [facility] Systolic (mm Hg) 163 10/09/2017 [facility] Diastolic (mm Hg) 99 10/09/2017 [facility] Rate 67 10/09/2017 [facility] Respitory Rate 18 10/09/2017 [facility] Height 177.8 cm 10/09/2017 [facility] Temperature Oral (F) 98.8 F 10/09/2017 [facility] Rate 73 10/09/2017 [facility] Systolic (mm Hg) 171 10/09/2017 [facility] Diastolic (mm Hg) 104 10/09/2017 [facility] Respitory Rate 18 10/09/2017 [facility] BMI Calculated 35.23 10/09/2017 [facility] Weight 111.364 10/09/2017 [facility] Respitory Rate 20 07/02/2017 [facility] Heart Rate 70 07/02/2017 [facility] Temperature Oral (F) 98.0 F 07/02/2017 [facility] Systolic (mm Hg) 134 07/02/2017 [facility] Diastolic (mm Hg) 79 07/02/2017 [facility] Heart Rate 70 07/02/2017 [facility] Respitory Rate 20 07/02/2017 [facility] Temperature Oral (F) 98.5 F 07/02/2017 [facility] Systolic (mm Hg) 111 07/02/2017 [facility] Diastolic (mm Hg) 55 07/02/2017 [facility] Respitory Rate 20 07/02/2017 [facility] Temperature Oral (F) 98.4 F 07/02/2017 [facility] Heart Rate 70 07/02/2017 [facility] Systolic (mm Hg) 112 07/02/2017 [facility] Diastolic (mm Hg) 60 07/02/2017 [facility] Weight 113.239 07/02/2017 [facility] BMI Calculated 35.82 07/02/2017 [facility] Height 177.8 cm 07/02/2017 [facility] Temperature Oral (F) 98.4 F 07/01/2017 [facility] Systolic (mm Hg) 141 07/01/2017 [facility] Diastolic (mm Hg) 91 07/01/2017 [facility] Heart Rate 88 07/01/2017 [facility] Respitory Rate 18 07/01/2017 [facility] Temperature Oral (F) 98.6 F 07/01/2017 [facility] Heart Rate 85 07/01/2017 [facility] Respitory Rate 18 07/01/2017 [facility] Systolic (mm Hg) 138 07/01/2017 [facility] Diastolic (mm Hg) 92 07/01/2017 [facility] Respitory Rate 18 07/01/2017 [facility] Temperature Oral (F) 98.1 F 07/01/2017 [facility] Heart Rate 70 07/01/2017 [facility] Systolic (mm Hg) 143 07/01/2017 [facility] Diastolic (mm Hg) 88 07/01/2017 [facility] BMI Calculated 35.66 07/01/2017 [facility] Weight 112.727 07/01/2017 [facility] Height 177.8 cm 07/01/2017 [facility] BMI Calculated 35.8 06/30/2017 [facility] Height 177.8 cm 06/30/2017 [facility] Weight 113.182 06/30/2017 [facility] Respitory Rate 18 02/26/2017 [facility] Heart Rate 78 02/26/2017 [facility] Systolic (mm Hg) 136 02/26/2017 [facility] Diastolic (mm Hg) 75 02/26/2017 [facility] Temperature Oral (F) 98.3 F 02/26/2017 [facility] Respitory Rate 20 02/26/2017 [facility] Heart Rate 75 02/26/2017 [facility] Weight 110.568 02/26/2017 [facility] Height 177.8 cm 02/26/2017 [facility] BMI Calculated 34.98 02/26/2017 [facility] Systolic (mm Hg) 154 02/26/2017 [facility] Diastolic (mm Hg) 89 02/26/2017 [facility] Systolic (mm Hg) 110 02/09/2017 [facility] Diastolic (mm Hg) 78 02/09/2017 [facility] Respitory Rate 20 02/09/2017 [facility] Temperature Oral (F) 98.0 F 02/09/2017 [facility] Systolic (mm Hg) 119 02/09/2017 [facility] Diastolic (mm Hg) 73 02/09/2017 [facility] Systolic (mm Hg) 110 02/09/2017 [facility] Diastolic (mm Hg) 63 02/09/2017 [facility] Height 177.8 cm 02/08/2017 [facility] Weight 111.364 02/08/2017 [facility] BMI Calculated 35.23 02/08/2017 [facility] Temperature Oral (F) 98.4 F 02/08/2017 [facility] Respitory Rate 20 01/20/2017 [facility] Systolic (mm Hg) 170 01/20/2017 [facility] Diastolic (mm Hg) 90 01/20/2017 [facility] Heart Rate 79 01/20/2017 [facility] Weight 109.602 01/20/2017 [facility] Height 177.8 cm 01/20/2017 [facility] BMI Calculated 34.67 01/20/2017 [facility] Systolic (mm Hg) 140 01/20/2017 [facility] Diastolic (mm Hg) 89 01/20/2017 [facility] Heart Rate 86 01/20/2017 [facility] Temperature Oral (F) 98.5 F 01/20/2017 [facility] Respitory Rate 20 01/20/2017 [facility] Respitory Rate 16 01/09/2017 [facility] Systolic (mm Hg) 161 01/09/2017 [facility] Diastolic (mm Hg) 99 01/09/2017 [facility] Temperature Oral (F) 98.4 F 01/09/2017 [facility] Systolic (mm Hg) 187 01/09/2017 [facility] Diastolic (mm Hg) 106 01/09/2017 [facility] Respitory Rate 18 01/09/2017 [facility] Systolic (mm Hg) 151 01/09/2017 [facility] Diastolic (mm Hg) 82 01/09/2017 [facility] Respitory Rate 18 01/09/2017 [facility] Heart Rate 65 01/09/2017 [facility] Height 175.26 cm 01/09/2017 [facility] Weight 77.273 01/09/2017 [facility] Temperature Oral (F) 98.1 F 01/09/2017 [facility] BMI Calculated 25.16 01/09/2017 [facility] Heart Rate 68 01/09/2017 [facility] Encounters Location Location Details Encounter Type Encounter Number Reason For Visit Attending Provider ADM Date DC Date Status Source Outpatient [id number] JENSEN MADDOX JR 05/05/2015 [facility] [place] [facility] [id number] [place] Jose Luis 04/06/2016 05/06/2016 [facility] [id number] Travon Que 01/09/2017 01/09/2017 [facility] [id number] Justin Ojeda 01/20/2017 01/20/2017 [facility] [id number] Amado Koch 02/08/2017 02/09/2017 [facility] [facility] Emergency [id number] Louis Canales 02/26/2017 02/26/[address] [facility] Observation [id number] Lili Rosario 06/30/2017 07/01/2017 [facility] Emergency [id number] Louis Canales 07/02/2017 07/02/2017 [facility] Outpatient Imaging [facility] [id number] Jairo Ferro 09/20/2017 09/21/2017 [facility] Outpatient Imaging [facility] [place] [facility] [id number] Jcarlos Bernard Jr 10/09/2017 10/09/2017 [facility] Emergency [id number] Bert Cantor 12/14/2017 12/15/2017 [facility] [place] OP Therapy Patients [id number] Alex Ferro 02/04/2018 03/06/[address] [facility] [place] [facility] [place] OP Therapy Patients [id number] Alex Ferro 03/08/2018 04/07/[address] [facility] [place] [facility] Outpatient Imaging [place] Outpt Diag Services [id number] Adryan Davecynthia 04/08/2018 04/09/2018 [facility] [place] [facility] [place] OP Therapy Patients [id number] Keyur Sorto 04/09/2018 05/09/[address] [facility] [place] [facility] [place] OP Therapy Patients [id number] Alex Ferro 06/10/2018 07/10/[address] [facility] [place] [facility] [place] OP Therapy Patients [id number] Keyur Sorto 07/10/2018 08/09/[address] [facility] [place] [facility] Emergency [id number] Yusra Cody 08/12/2018 08/12/2018 [facility] [place] OP Therapy Patients [id number] Keyur Sorto 08/26/2018 09/25/[address] [facility] [place] [facility] [place] OP Therapy Patients [id number] Keyur Sorto 10/02/2018 10/19/[address] [facility] [place] [facility] [id number] Nina Villalobos 11/09/2018 11/09/2018 [facility] Procedures Procedure Code Date Perfomer Comments Source Back surgery [id number] 05/21/2007 [facility] Outpatient Imaging [facility], [facility] [place],[facility] [place] PFO - Closure of patent foramen ovale [id number] [facility] Outpatient Imaging [facility], [facility] [place],[facility] [place] Assessment and Plan Assessment and Plan Date Source Extracted from:Title: Stroke Consult Note Author: Naveen Wynn MD Date: 12/14/17 Stroke History and Physical Patient: Jonny Tomlinson Chief Complaint: imbalance, vertigo History of Present Illness: Mr. Tomlinson is a 57yo male with PMH of HTN, HLD, reported previous strokes (has received tPA twice), PFO s/p closure, who presents to the ED from Neurologist office due to concern for vertebral artery dissection. Patient has had vertigo and imbalance since 8 days ago, when he suddenly developed symptoms while walking at his living room. He refers that he constantly leans to the right. His dizziness occurs episodically, lasting sometimes from minutes up to 2 hours. He has had symptoms everyday for the past week. He also refers associated neck pain since onset of symptoms. Also refers associated tinnitus. No significant trauma or weight lifting. Patient has had similar symptoms during the last year, and after being evaluated he has been told it was peripheral etiology. Due to this, patient did not seek attention, since he had a Neurology appointment today. While being evaluated, his physician became concerned and ordered a stat CTA, which raised concern for possible R vert dissection. He was then told to come to the ER for evaluation. Review of Systems: GEN: no fever, chills, weight loss, fatigue EYES: no blurred vision, double vision CARDIO: no chest pain, palpitations PULM: no shortness of breath, cough GI: no nausea, vomiting, diarrhea, no abd pain : no frequency, dysuria, hematuria NEURO: see HPI SKIN: no rash or lesion MSK: no pain, swelling, redness, heat in muscles, no limited ROM, weakness, or atrophy, no cramps LYMPH/IMMUNO: No lymph node enlargement/tenderness, no heat/cold intolerance Past Medical History: HTN, HLD, reported previous strokes Past Surgical History: Back fusion: 2007 Back fusion: 1994 PFO - Closure of patent foramen ovale Family Medical History: unremarkable Social History: Patient is . Occasional alcohol. No illicit drug use. Denies smoking. Medications: ASA 325, statin Allergies: Latex, penicillin Physical Exam: Vitals: Vitals Tmp(F) Tmp(C) Ttype BP MAP Pulse RR SpO2 FIO2 ETCO2 12/15 01:00 ---- ---- ---- 110/67 82 59 16 96 --- --- 12/14 21:00 ---- ---- ---- 107/56 74 63 19 96 --- --- 12/14 20:00 98.2 36.78 oral 117/71 89 67 16 96 --- --- 12/14 19:15 98.2 36.78 oral 128/77 96 66 16 100 --- --- 12/14 18:23 98.3 36.83 oral 125/74 --- 71 18 100 --- --- 24 Hr Tmax: 98.3F (36.83c) at 12/14 18:23 24 Hr Tmin: 98.2F (36.78c) at 12/14 20:00 36 Hr Tmax: 98.3F (36.83c) at 12/14 18:23 36 Hr Tmin: 98.2F (36.78c) at 12/14 20:00 GENERAL: Awake, alert in NAD HEENT: - Normocephalic and atraumatic, dry mm, no LN++, no Thyromegally LUNGS - Clear to auscultation bilaterally with no wheezes CV - S1S2 RRR, no m/r/g, equal pulses bilaterally. ABDOMEN - Soft, nontender, nondistended with normoactive BS NEURO: Mental Status: AA&Ox3 Language: speech is clear. Naming, repetition, fluency, and comprehension intact. Cranial Nerves: PERRL 3mm/brisk. EOMI, visual lewis full, no facial asymmetry, facial sensation intact, hearing intact, tongue/uvula/soft palate midline, normal sternocleidomastoid and trapezius muscle strength. No evidence of tongue atrophy or fibrillations HINTS exam unremarkable, no nystagmus or skew deviation. Motor: 5/5 bilaterally Tone: is normal and bulk is normal Sensation- Intact to light touch bilaterally Coordination: FTN intact bilaterally, no ataxia in BLE. Gait- normal Pre-Morbid MRS 0-Completely asymptomatic NIH Stroke Scale (NIHSS) 0 1a. Level of Consciousness; 0-alert 1-drowsy 2-stupor 3-coma 0 1b. LOC Questions month and age; 0-both 1-one 2-neither 0 1c. LOC Commands open/close eyes, environmental health technician/release non-paretic hand; 0-both 1-one 2-neither 0 2. Best Gaze; 0-nl 1-partial 2-forced gaze 0 3. Visual Lewis; 0-No visual loss. 1-Partial hemianopia 2-Complete 3-Bilateral 0 4. Facial Palsy; 0-none 1-minor 2-partial 3-complete 0 5. Motor - R arm; 0-No drift 1-Drift 2-Some antigravity 3-No antigravity 4-No movement 0 6. Motor - R leg; 0-No drift 1-Drift 2-Some antigravity 3-No antigravity 4-No movement 0 7. Motor - L arm; 0-No drift 1-Drift 2-Some antigravity 3-No antigravity 4-No movement 0 8. Motor - L leg; 0-No drift 1-Drift 2-Some antigravity 3-No antigravity 4-No movement 0 9. Limb Ataxia; 0 absent 1 - 1limb 2 - 2 limbs 0 10. Sensory; 0-nl 1-partial loss 2-dense loss 0 11. Best Language; 0-nl 1-mild/mod 2-severe 3-mute 0 12. Dysarthria; 0-nl 1-mild/mod 2-severe x-untestable 0 13. Extinction and Inattention (formerly Neglect); 0-none 1-partial 2-complete 0 Total Labs: WBC 10.1 (DEC 14) Hgb 15.5 (DEC 14) Hct 43.9 (DEC 14) Plt 304 (DEC 14) Na L 133 (DEC 14) K L 3.2 (DEC 14) CO2 28 (DEC 14) Cl 98 (DEC 14) Cr 1.21 (DEC 14) BUN 18 (DEC 14) Glucose Random H 238 (DEC 14) Ca 9.1 (DEC 14) PT 12.7 (DEC 14) INR 0.95 (DEC 14) PTT 29.5 (DEC 14) Imaging: Brain wo contrast MRI 12/14/2017 23:25 Impression: 1. No acute infarct or hemorrhage. 2. Mild chronic microvascular ischemic changes. Chest 1view DX 12/14/2017 22:58 Impression: Implantable loop recorder projecting over the left midlung and an Amplatz occlusion device is seen overlying the right heart. Brain/Neck CTA Prelim read: 1. No intracranial proximal branch occlusion, vascular injury, or aneurysm is identified. Atherosclerotic calcification of the supraclinoid left internal carotid artery and cavernous right internal carotid artery. 2. Atherosclerotic calcification at the left carotid bifurcation without hemodynamically significant stenosis by NASCET criteria. 3. Hypodense 1.1 cm nodule in the thyroid isthmus. 12/15/2017 03:18 Impression: 1. 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 The treating team is aware of the abnormality given the history provided on this exam and the subsequent MR. 2. Atherosclerotic calcification of the supraclinoid left internal carotid artery and cavernous right internal carotid artery. A small filling defect is again identified on the left in the ophthalmic segment, unchanged and, therefore, felt to represent soft plaque. 3. Atherosclerotic calcification at the left carotid bifurcation without hemodynamically significant stenosis by NASCET criteria. 4. No intracranial proximal branch occlusion, vascular injury, or aneurysm is identified. 5. Hypodense 1.1 cm nodule in the thyroid isthmus is below size criteria which would necessitate further imaging follow-up. Assessment: 57yo male who presents with 8 days of intermittent dizziness and imbalance. Patient refers imbalance with constant leaning to the right. Symptoms can last from a few minutes to a couple hours in occasion. Associated tinnitus as well. Patient has had episodes of dizziness in the past year. CTA done on arrival shows a small caliber right vertebral artery, which impresses to be similar size to last CTA 1 year ago. We evaluated imaging and also discussed with radiology receptionist satellite communications engineer findings, and impression was that there was no dissection. Clinical presentation of patient also impressed of a peripheral etiology. His HINTS exam showed no signs of central etiology of symptoms. No nausea or vomiting was reported. Patient was able to walk normally in subsequent exams in ED. No signs of ataxia or dysmetria. Patient was also evaluated by NSGY. MRI brain wo contrast was performed and showed no ischemic events or lesions suggestive of infarction in vertebral artery territory. Our thought is that changes seen in vert artery are of chronic nature. We discussed findings with patient, and offered the option to stay in hospital to monitor symptoms overnight, administer fluids and Meclizine, as well as vestibulat therapy in the morning. Patient was feeling better, and was able to stand up and walk without symptoms, and preferred home discharge. Due to our analysis of findings in exam, imaging and history, we felt it was a reasonable decision, with planned close follow up with Neurology and ENT. Later changes to final read of CTA were not communicated to us. Plan: - After evaluation of history, exam, and imaging, it is likely that symptoms are from peripheral etiology. Patient had stable exam and gait in ER. HINTS exam not suggestive of central etiology. - Discussed with patient possibility of admission overnight for monitoring, but due to feeling well and discussion of findings, preferred home discharge. - Ok to discharge from Neuro standpoint. Meclizine prescription for symptomatic control. - Close follow up with Neurology and ENT. 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 OOW, no infarct on MRI Delays in this process: (None) Case discussed with Dr. Villa, fellow satellite communications engineer. Chani Knox PGY-3 MD Neurology Pt seen by me, discussed w/ staff ( Dr. Wynn) who agreed w/ plan. 1 week positional vertigo on standing/siting not w/ head movement. Exam wnl. No nystagmus found even w/ eliminating visual fixation. subjective feeling of dizziness resolve on lying down without n/v , able to ambulate w/o assist and w/encouragement. No truncal ataxia. CTA reviewed and discussed w/ radiology, was not aware of final report and wasnt notified. Reviewed w/ resident and staff. CTA appear similar to old CTA done > 1 year ago w/ only minimal changes. Pt symptoms and CTA findings doesnt fit in acute dissection. MRI done and was negative(loop recorder compatible) Can be dischared w/ f/up out pt neyrlogy Alessandro Villa MD. PGY 5 Vascular Neurology fellow. 12/15/2017 [facility] Extracted from:Title: GS Consult * Author: Anant Schroeder MD Date: 07/01/17 Impression and Plan Diagnosis SBO (small bowel obstruction) ([id number] K56.609, Working, Medical). Course: Improving, Progressing as expected. Orders dc ngt, offer FL diet, home today on bland diet as tolerated. Extracted from:Title: History and Physical Author: Lili Rosario MD Date: 06/30/17 Nausea vomiting diarrheaprobable gastroenteritis Abdominal pain Dehydration Hypertension Hyperlipidemia Systemic inflammatory response syndromewithout sepsis Plan: Admit to observation IV fluids NG tube to low intermittent suction Surgical consultation placed by ER physician As needed antiemetics and analgesia Stool studiesfor possible bacterial etiology Hold oral medications until tolerating p.o. 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 Tomlinson is 56 years old man with history of cryptogenic strokes, proven on MRI, and currently on optimal medical therapy, was found to have a patent foramen ovale. Other investigations including Holter/tele monitoring and vascular imaging did not reveal an etiology for her strokes. The patient was evaluated by Neurology and cardiology in a multi- disciplinary way, and it was thought that the patient probably had stroke due to paradoxical embolism through the PFO, and it decided that it should be closed. Medications: Midazolam 2 mg IV Fentanyl 100 mcg IV Aspirin 81 mg PO Clopidogrel 75 mg PO Cefazolin 1 gm IV Heparin 17,000 units IV Description of Procedure: The risks and benefits were discussed with the patient and an informed written consent was obtained prior to the procedure. The patient was then brought into cardiac catheterization laboratory. Conscious sedation was achieved with IV fentanyl, and versed. Cefazolin 1g IV was administered for antibiotic prophylaxis. The patient was administered 1% lidocaine for local anesthesia in the right groin, and two right femoral venous accesses was gained using a micropuncture needle kit, and 25 cm 9F and 11F sheaths were placed. The patient was administered heparin for anticoagulation. Following placement of the sheaths, an ICE probe was advanced through the 9F sheath and placed in the right atrium. Baseline images were obtained. Imaging showed a large PFO with significant inter-atrial shunt. At this point, decision was made to perform the PFO closure. The PFO was crossed using a 4F MP catheter and a storqe wire which was advanced into the left superior pulmonary vein. The MP catheter was removed over a 0.035" [employer] superstiff 260 cm exchange length guidewire, which remained in the left superior pulmonary vein. Based on the fluoroscopic findings and measurement from the ICE, an Amplatzer PFO occluder 35 mm device was selected for the deployment. Next, a 9 F torqvue delivery system was advanced through the 11F sheath over the superstiff guidewire, across in to the left superior pulmonary vein through the PFO, and the wire and the dilator were removed. The occluder device was prepped, de-aired in the standard fashion and advanced inside the body through the torqvue sheath. The device deployment system was positioned in the left atrium. Then, under the ICE and fluoroscopic guidance, the septal occluder device was successfully deployed in the standard fashion. Immediately post deployment, a tug-test was performed. After confirming stability, and successful sealing of the PFO on ICE, the device was released. Final fluoroscopic and ICE imaging showed stable appearance of the septal occluder device on the corresponding site to the PFO. At the conclusion of the procedure, the torvue and the ICE catheters were removed from the body. Local hemostasis was achieved by application of a [id number] suture after removal of the sheaths. The patient tolerated the procedure well. Device Used: Amplatzer PFO 35 mm occluder device Complications: None Total Fluoroscopic time: 10 minutes Intracardiac echocardiogram findings: 1. A large PFO was seen with a large inter-atrial shunt. 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 2. Post Device deployment: The device was well seated. The device was not impinging on tricuspid or mitral valves. It was well placed on the aortic rim, with no significant splaying. No significant flow across and around the device. Conclusion: Successful PFO/ASD closure with an Amplatzer PFO 35 mm occluder device. Recommendations: 1. 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 2. Remove groin sutures tomorrow morning. 3. Initiate dual antiplatelet therapy with aspirin 81 mg and clopidogrel 75mg daily for 3 months, and then aspirin indefinitely. 4. Obtain 2D echocardiogram with bubble study tomorrow morning. 5. Continue optimal medical therapy. 6. Return visit to clinic in 4-6 weeks after another echocardiogram at that time. The entire procedure was performed with, and interpretation verified by MD Amado Churchill MD, MPH, [facility], [facility] Staff [employer] Addendum by Amado Koch MD on 02/08/2017 16:00 Moderate sedation was provided with a total of intravenous fentanyl 100 mcg and midazolam 2 mg. Lidocaine 1% was used for local anesthesia. Heart rate, rhythm, and pulse oximetry were continuously recorded and monitored in real time throughout the procedure by a trained dedicated interventional cardiology catheterization laboratory RN under my direct supervision. Dr. Hairston was REILLY. Blood pressure was monitored in 5 minute increments. Total sedation time was 60 minutes. There was no complications from the sedation. I, Amado Koch, was present for and participated in the entire procedure including performance of nesbitt components and interpretation of data. I agree with fellow's plan as mentioned above. 02/09/2017 [facility] Extracted from:Title: Stroke Team Code Stroke Author: Charley Lynn NP Date: 01/09/17 Code Stroke Critical Care Note Briefly, 56 yo male with HTN, TIA, MCKENNA who awoke well and went to work. While sitting at a desk working at his computer, he experienced dizziness, vision loss, slowed speech with a change in speech pattern-like baby talk, not dysarthria and left sided weakness. BP 160s, FS 115. CTH without acute findings. CTA H&N evaluated and without perfusion defecit or obvious large vessel occlusion. He is not a tPA candidate due to symtpoms improving and patient states he is feeling better. After review of neuro imaging, the cause of this current event is not likely vascular. Will obtain a stat MRI w/wo contrast for further evaluation which I coordinated with MRI scheduling and the ED staff. Would recommend continued daily aspirin and statin for primary stroke prevention. Case discussed with Dr. Hayes. PHYSICAL EXAM: Vitals Tmp(F) Pulse BP RR SpO2 FIO2 01/09 09:31 ---- 66 187/106 18 97 --- 01/09 08:45 ---- 68 151/82 18 97 --- 01/09 08:11 ---- 65 148/89 18 99 --- 01/09 08:04 98.1 68 170/84 18 100 --- 24 Hr Tmax: 98.1F (36.72c) at 01/09 08:04 Vital Signs are the last 5 in the past 48 hours. GENERAL: Awake, alert and anxious HEENT: - Normocephalic and atraumatic, dry mm, no LN++, no Thyromegally LUNGS - Regular, unlabored CV - RRR, equal pulses bilaterally. ABDOMEN - Soft, nontender, nondistended NEURO: Mental Status: AA&Ox3 Language: speech is more consistent with baby-talk than dysarthria. Naming, repitition, fluency, and comprehension intact. Cranial Nerves: PERRL 5 mm/brisk. EOMI, visual lewis full, no facial asymmetry, facial sensation intact, hearing intact, tongue/uvula/soft palate midline, normal sternocleidomastoid and trapezius muscle strength. No evidence of tongue atrophy or fibrillations Motor: BUE drift that improves with encouragement. Tone: is normal and bulk is normal Sensation- Intact to light touch bilaterally Coordination: FTN intact bilaterally, no ataxia in BLE. Gait- deferred I took care of this critically ill patient who presented to the ED with symptoms concerning for basilar stenosis/occlusion with the chance of decompensation for evaluation of tPA or IAT. The patient was evaluated in the ED and escorted to CT. If no stroke is identified on MRI, would consider normalizing blood pressure to treat hypertensive urgency and hypertensive encephalopathy. I spent a total of 45 minutes at the bedside evaluating the patient, reviewing data, discussing and coordinating the plan of care with the treatment teams and updating the patient on the plan of care. [id number] First 31-74 minutes 01/09/2017 [facility] Plan of Care No Data Provided for This Section Social History Social History Date Source Social History TypeResponse Smoking Status Never smoker; Exposure to Tobacco Smoke None; Cigarette Smoking Last 365 Days No; Reg Smoking Cessation Counseling No entered on: 11/09/18 11/09/2018 [facility] Social History TypeResponse Smoking Status Never smoker; Exposure to Tobacco Smoke None; Cigarette Smoking Last 365 Days No; Reg Smoking Cessation Counseling No entered on: 11/09/18 11/09/2018 [facility] Social History TypeResponse Smoking Status Never smoker; Exposure to Tobacco Smoke None; Cigarette Smoking Last 365 Days No; Reg Smoking Cessation Counseling No entered on: 08/12/18 08/12/2018 [facility] Social History TypeResponse Smoking Status Never smoker; Exposure to Tobacco Smoke None; Cigarette Smoking Last 365 Days No; Reg Smoking Cessation Counseling No entered on: 08/12/18 08/12/2018 [facility] Social History TypeResponse Smoking Status Never smoker; Exposure to Tobacco Smoke None; Cigarette Smoking Last 365 Days No; Reg Smoking Cessation Counseling No entered on: 12/14/17 12/15/2017 [facility] Social History TypeResponse Smoking Status Never smoker; Exposure to Tobacco Smoke None; Cigarette Smoking Last 365 Days No; Reg Smoking Cessation Counseling No entered on: 07/02/17 07/02/2017 [facility] Outpatient Imaging [facility] Family History No Data Provided for This Section Advance Directives No Data Provided for This Section Functional Status No Data Provided for This Section
--- OUTSIDE RECORDS SUMMARY | 2019-01-06 08:04 | XMS REPORT | Summary of Care ---
Author Author [facility] Organization [facility] Address Unknown Phone Unavailable Encounter SKIP Galdamez(RAMÍREZ) [id number] Date(s): 01/09/17 - 01/09/17 [facility] [address] [employer] provided by [facility] [employer] [facility] [place] [address]- Discharge Diagnosis: Altered mental status, unspecified Discharge Disposition: Home or Self Care Attending Physician: Priscilla Calderon MD Admitting Physician: Travon Grey MD Vital Signs 1 2 3 Most recent to oldest [Reference Range]: 175.26 cm (01/09/17 8:04 AM) Height 98.4 DegF (01/09/17 12:59 PM) 98.1 DegF (01/09/17 8:04 AM) Temperature Oral [96.4-99.1 DegF] 161/99 mmHg *HI* (01/09/17 12:59 PM) 187/106 mmHg *HI* (01/09/17 9:31 AM) 151/82 mmHg *HI* (01/09/17 8:45 AM) Blood Pressure [90-140/60-90 mmHg] 16 BRMIN (01/09/17 12:59 PM) 18 BRMIN (01/09/17 9:31 AM) 18 BRMIN (01/09/17 8:45 AM) Respiratory Rate [14-20 BRMIN] 65 bpm (01/09/17 8:11 AM) 68 bpm (01/09/17 8:04 AM) Peripheral Pulse Rate [60-100 bpm] 77.273 kg (01/09/17 8:04 AM) Weight 25.16 m2 (01/09/17 8:04 AM) Body Mass Index Problem List Condition Effective Dates Status Health Status Informant Anxiety disorder1 08/07/12 Active Chronic Active pain(Confirmed) Gastroesophageal 08/07/12 Active reflux disease2 Low back pain3 08/07/12 Active Lumbago(Confirmed) Active Lumbar back Active pain(Confirmed) Lumbar Active radiculopathy(Confir med) Lumbar Active spondylosis(Confirme d) Obesity(Confirmed) Active Failed back Active syndrome(Confirmed) Tension-type 08/07/12 Active headache4 1Data migrated from [employer] on 10/17/14. 2Data migrated from [employer] on 10/17/14. 3Data migrated from [employer] on 10/17/14. 4Data migrated from [employer] on 10/17/14. Allergies, Adverse Reactions, Alerts Substance Reaction Severity Status NKDA Active Medications Saline Flush 0.9% 10 mL, Route: MISC, Drug Form: INJ, kg, PRN, PRN Line Flush, Start date: 7 8:01:00 CDT, Duration: 30 day, Stop date: 02/08/17 8:00:00 CDT Notes: (Same as: BD Posiflush) Start Date: 01/09/17 Stop Date: 01/10/17 Status: Discontinued Visipaque 320mg/ml 99 mL, Route: IVP, Drug Form: SOLN, Dosing Weight 77.273, kg, ONCALL, STAT, Star t date: 01/09/17 8:40:00 CDT, Duration: 1 doses or times, Dose=2.2ml/kg, Max do ly=336mg -- "To be infused by Radiology Staff ONLY" Start Date: 01/09/17 Stop Date: 01/09/17 Status: Completed Results ELECTROLYTES Most recent to 1 2 oldest [Reference Range]: Sodium Lvl [135-145 138 mEq/L mEq/L] (01/09/17 8:00 AM) Potassium Lvl 4.3 mEq/L 1 [3.5-5.1 mEq/L] (01/09/17 8:00 AM) Chloride Lvl [95-109 104 mEq/L mEq/L] (01/09/17 8:00 AM) CO2 [24-32 mEq/L] 27 mEq/L (01/09/17 8:00 AM) AGAP [10.0-20.0 11.3 mEq/L mEq/L] (01/09/17 8:00 AM) 1Result Comment: slight [id number]/22/2017 08:12 CHEM PANEL Most recent to 1 2 oldest [Reference Range]: Creatinine Lvl 0.99 mg/dL [0.50-1.40 mg/dL] (01/09/17 8:00 AM) eGFR 75 mL/min/1.73m2 1 56 mL/min/1.73m2 2 *NA* *NA* (01/09/17 8:09 AM) (01/09/17 8:00 AM) BUN [7-22 mg/dL] 17 mg/dL (01/09/17 8:00 AM) Glucose Lvl [70-99 103 mg/dL mg/dL] *HI* (01/09/17 8:00 AM) POC Creatinine 1.1 mg/dL [0.5-1.4 mg/dL] (01/09/17 8:09 AM) Calcium Lvl 9.1 mg/dL [8.5-10.5 mg/dL] (01/09/17 8:00 AM) 1Result Comment: The eGFR is calculated using the [...] from the National Kidney Disease Education Program ( NKDEP) which additionally recommends that when the eGFR is used in patients with extremes of body mass index for purposes of drug dosing, the eGFR should be mul tiplied by the estimated BMI. 2Result Comment: The eGFR is calculated using the [...] from the National Kidney Disease Education Program ( NKDEP) which additionally recommends that when the eGFR is used in patients with extremes of body mass index for purposes of drug dosing, the eGFR should be mul tiplied by the estimated BMI. CARDIAC ENZYMES Most recent to 1 2 oldest [Reference Range]: Total CK [12-191 95 unit/L unit/L] (01/09/17 8:00 AM) CK MB [0.5-3.6 <0.5 ng/mL ng/mL] (01/09/17 8:00 AM) CK MB Index <0.5 [0.0-2.5] (01/09/17 8:00 AM) Troponin-I <0.02 ng/mL [0.00-0.40 ng/mL] (01/09/17 8:00 AM) DRUG SCREEN Most recent to 1 2 oldest [Reference Range]: U Methadone Scr Negative [Negative] *NA* (01/09/17 10:20 AM) U Propoxyph Scr Negative [Negative] *NA* (01/09/17 10:20 AM) U Amph Scr Negative [Negative] *NA* (01/09/17 10:20 AM) U Reshma Scr Negative [Negative] *NA* (01/09/17 10:20 AM) U Benzodia Scr Negative [Negative] *NA* (01/09/17 10:20 AM) U Cocaine Scr Negative [Negative] *NA* (01/09/17 10:20 AM) U Opiate Scr Negative [Negative] *NA* (01/09/17 10:20 AM) U Phencyc Scr Negative [Negative] *NA* (01/09/17 10:20 AM) U Cannab Scr Negative [Negative] *NA* (01/09/17 10:20 AM) UDS Note See Note *NA* (01/09/17 10:20 AM) URINE AND STOOL Most recent to 1 2 oldest [Reference Range]: UA Turbidity [Clear] Clear (01/09/17 10:20 AM) UA Color [Yellow] Yellow *NA* (01/09/17 10:20 AM) UA pH [5.0-8.0] 6.0 (01/09/17 10:20 AM) UA Spec Grav 1.025 [<=1.030] (01/09/17 10:20 AM) UA Glucose Negative [Negative] (01/09/17 10:20 AM) UA Blood [Negative] Negative (01/09/17 10:20 AM) UA Ketones Negative [Negative] *NA* (01/09/17 10:20 AM) UA Protein Negative [Negative] (01/09/17 10:20 AM) UA Urobilinogen 0.2 EU/dL [0.1-1.0 EU/dL] (01/09/17 10:20 AM) UA Bili [Negative] Negative *NA* (01/09/17 10:20 AM) UA Leuk Est Negative [Negative] (01/09/17 10:20 AM) UA Nitrite Negative [Negative] (01/09/17 10:20 AM) UA WBC [None Seen 0-2 /HPF /HPF] (01/09/17 10:20 AM) UA RBC [0-2] None Seen (01/09/17 10:20 AM) UA Bacteria [None None Seen Seen] (01/09/17 10:20 AM) UA Sq Epi [Few] None Seen (01/09/17 10:20 AM) HEMATOLOGY Most recent to 1 2 oldest [Reference Range]: WBC [3.7-10.4 K/CMM] 7.5 K/CMM (01/09/17 8:00 AM) RBC [4.70-6.10 5.35 M/CMM M/CMM] (01/09/17 8:00 AM) Hgb [14.0-18.0 g/dL] 15.4 g/dL (01/09/17 8:00 AM) Hct [42.0-54.0 %] 44.8 % (01/09/17 8:00 AM) MCV [80.0-94.0 fL] 83.8 fL (01/09/17 8:00 AM) MCH [27.0-31.0 pg] 28.8 pg (01/09/17 8:00 AM) MCHC [32.0-36.0 34.4 g/dL g/dL] (01/09/17 8:00 AM) RDW [11.5-14.5 %] 13.1 % (01/09/17 8:00 AM) Platelet [133-450 277 K/CMM K/CMM] (01/09/17 8:00 AM) MPV [7.4-10.4 fL] 7.3 fL *LOW* (01/09/17 8:00 AM) Segs [45.0-75.0 %] 54.3 % (01/09/17 8:00 AM) Lymphocytes 34.7 % [20.0-40.0 %] (01/09/17 8:00 AM) Monocytes [2.0-12.0 7.8 % %] (01/09/17 8:00 AM) Eosinophils [0.0-4.0 2.8 % %] (01/09/17 8:00 AM) Basophils [0.0-1.0 0.4 % %] (01/09/17 8:00 AM) Segs-Bands # 4.1 K/CMM [1.5-8.1 K/CMM] (01/09/17 8:00 AM) Lymphocytes # 2.6 K/CMM [1.0-5.5 K/CMM] (01/09/17 8:00 AM) Monocytes # [0.0-0.8 0.6 K/CMM K/CMM] (01/09/17 8:00 AM) Eosinophils # 0.2 K/CMM [0.0-0.5 K/CMM] (01/09/17 8:00 AM) PT [12.0-14.7 12.3 seconds seconds] (01/09/17 8:00 AM) INR [0.85-1.17] 0.90 (01/09/17 8:00 AM) PTT [22.9-35.8 30.3 seconds seconds] (01/09/17 8:00 AM) Immunizations No data available for this section Procedures Procedure Date Related Diagnosis Body Site Back surgery 2007 Back surgery 1994 Social History Social History Type Response Smoking Status Never smoker; Exposure to Tobacco Smoke None; Cigarette Smoking Last 365 Days No; Reg Smoking Cessation Counseling No Assessment and Plan Extracted from: Title: Stroke Team Code Stroke Author: Charley Lynn [...] Case discussed with Dr. Hayes. PHYSICAL EXAM: VitalsTmp(F)[id number] 01/09 09:31----[id number]--- 01/09 08:45----[id number]--- 01/09 08:11----[id number]--- 01/09 08:[id number]--- 24 Hr Tmax: 98.1F (36.72c) at 01/09 08:04Vital Signs are the last 5 in the [...] Cranial Nerves: PERRL 5 mm/brisk. EOMI, visual dubois full, no facial asymmetry, facial sensation intact, [...] the patient on the plan of care. [id number] First 31-74 minutes
--- OUTSIDE RECORDS SUMMARY | 2019-01-06 08:04 | XMS REPORT | Summary of Care ---
Author Author [facility] Organization [facility] Address Unknown Phone Unavailable Encounter SKIP Galdamez(RAMÍREZ) [id number] Date(s): 01/19/17 - 01/19/17 [facility] [address], [place], [place] [address]- [phone] Discharge Diagnosis: Asymptomatic hypertension Discharge Disposition: Home or Self Care Attending Physician: Justin Ojeda MD Vital Signs Most recent to 1 2 oldest [Reference Range]: Height 177.8 cm (01/19/17 8:26 PM) Temperature Oral 98.5 DegF [96.4-99.1 DegF] (01/19/17 8:26 PM) Blood Pressure 170/90 mmHg 140/89 mmHg [90-140/60-90 mmHg] *HI* (01/19/17 8:26 PM) (01/19/17 10:18 PM) Respiratory Rate 20 BRMIN 20 BRMIN [14-20 BRMIN] (01/19/17 10:18 PM) (01/19/17 8:26 PM) Peripheral Pulse 79 bpm 86 bpm Rate [60-100 bpm] (01/19/17 10:18 PM) (01/19/17 8:26 PM) Weight 109.602 kg (01/19/17 8:26 PM) Body Mass Index 34.67 m2 (01/19/17 8:26 PM) Problem List Condition Effective Dates Status Health Status Informant Anxiety disorder1 08/07/12 Active Chronic Active pain(Confirmed) Stroke(Confirmed) Resolved Gastroesophageal 08/07/12 Active reflux disease2 GERD Active (gastroesophageal reflux disease)(Confirmed) HTN Active (hypertension)(Confi rmed) Low back pain3 08/07/12 Active Lumbago(Confirmed) Active [...] Medications Saline Flush 0.9% 10 mL, Route: IVP, Drug Form: INJ, Dosing Weight 109.602, kg, PRN, PRN Line Flus h, Start date: 01/19/17 20:33:00 CDT, Duration: 1 day, Stop date: 01/20/17 20:32 :00 CDT Notes: (Same as: BD Posiflush) Start Date: 01/19/17 Stop Date: 01/19/17 Status: Discontinued Results ELECTROLYTES Most recent to 1 oldest [Reference Range]: Sodium Lvl [135-145 142 mEq/L mEq/L] (01/19/17 8:36 PM) Potassium Lvl 3.9 mEq/L [3.5-5.1 mEq/L] (01/19/17 8:36 PM) Chloride Lvl [95-109 106 mEq/L mEq/L] (01/19/17 8:36 PM) CO2 [24-32 mEq/L] 24 mEq/L (01/19/17 8:36 PM) AGAP [10.0-20.0 15.9 mEq/L mEq/L] (01/19/17 8:36 PM) CHEM PANEL Most recent to 1 oldest [Reference Range]: Creatinine Lvl 1.16 mg/dL [0.50-1.40 mg/dL] (01/19/17 8:36 PM) eGFR 70 mL/min/1.73m2 1 *NA* (01/19/17 8:36 PM) BUN [7-22 mg/dL] 20 mg/dL (01/19/17 8:36 PM) B/C Ratio [6-25] 17 (01/19/17 8:36 PM) Glucose Lvl [70-99 100 mg/dL mg/dL] *HI* (01/19/17 8:36 PM) Total Protein 7.3 g/dL [6.4-8.4 g/dL] (01/19/17 8:36 PM) Albumin Lvl [3.5-5.0 3.6 g/dL g/dL] (01/19/17 8:36 PM) Globulin [2.7-4.2 3.7 g/dL g/dL] (01/19/17 8:36 PM) A/G Ratio [0.7-1.6] 1.0 (01/19/17 8:36 PM) Calcium Lvl 9.1 mg/dL [8.5-10.5 mg/dL] (01/19/17 8:36 PM) ALT [0-65 unit/L] 40 unit/L (01/19/17 8:36 PM) AST [0-37 unit/L] 21 unit/L (01/19/17 8:36 PM) Alk Phos [39-136 97 unit/L unit/L] (01/19/17 8:36 PM) Bili Total [0.2-1.3 0.3 mg/dL mg/dL] (01/19/17 8:36 PM) 1Result Comment: The eGFR is calculated using [...] BMI. CARDIAC ENZYMES Most recent to 1 oldest [Reference Range]: Total CK [12-191 76 unit/L unit/L] (01/19/17 8:36 PM) CK MB [0.5-3.6 <1.0 ng/mL ng/mL] (01/19/17 8:36 PM) CK MB Index <1.3 [0.0-2.5] (01/19/17 8:36 PM) Troponin-I <0.02 ng/mL [0.00-0.40 ng/mL] (01/19/17 8:36 PM) URINE AND STOOL Most recent to 1 oldest [Reference Range]: UA Turbidity [Clear] Clear (01/19/17 9:35 PM) UA Color [Yellow] Yellow *NA* (01/19/17 9:35 PM) UA pH [5.0-8.0] 5.5 (01/19/17 9:35 PM) UA Spec Grav >=1.030 [<=1.030] *ABN* (01/19/17 9:35 PM) UA Glucose Negative [Negative] (01/19/17 9:35 PM) UA Blood [Negative] Negative (01/19/17 9:35 PM) UA Ketones Negative [Negative] *NA* (01/19/17 9:35 PM) UA Protein Negative [Negative] (01/19/17 9:35 PM) UA Urobilinogen 0.2 EU/dL [0.1-1.0 EU/dL] (01/19/17 9:35 PM) UA Bili [Negative] Negative *NA* (01/19/17 9:35 PM) UA Leuk Est Negative [Negative] (01/19/17 9:35 PM) UA Nitrite Negative [Negative] (01/19/17 9:35 PM) UA WBC [None Seen 0-2 /HPF /HPF] (01/19/17 9:35 PM) UA RBC [0-2] None Seen (01/19/17 9:35 PM) UA Bacteria [None None Seen Seen] (01/19/17 9:35 PM) UA Sq Epi [Few /LPF] Occasional /LPF (01/19/17 9:35 PM) HEMATOLOGY Most recent to 1 oldest [Reference Range]: WBC [3.7-10.4 K/CMM] 9.4 K/CMM (01/19/17 8:36 PM) RBC [4.70-6.10 5.32 M/CMM M/CMM] (01/19/17 8:36 PM) Hgb [14.0-18.0 g/dL] 15.3 g/dL (01/19/17 8:36 PM) Hct [42.0-54.0 %] 45.3 % (01/19/17 8:36 PM) MCV [80.0-94.0 fL] 85.1 fL (01/19/17 8:36 PM) MCH [27.0-31.0 pg] 28.8 pg (01/19/17 8:36 PM) MCHC [32.0-36.0 33.8 g/dL g/dL] (01/19/17 8:36 PM) RDW [11.5-14.5 %] 12.5 % (01/19/17 8:36 PM) Platelet [133-450 322 K/CMM K/CMM] (01/19/17 8:36 PM) MPV [7.4-10.4 fL] 7.5 fL (01/19/17 8:36 PM) Segs [45.0-75.0 %] 65.5 % (01/19/17 8:36 PM) Lymphocytes 25.7 % [20.0-40.0 %] (01/19/17 8:36 PM) Monocytes [2.0-12.0 6.3 % %] (01/19/17 8:36 PM) Eosinophils [0.0-4.0 2.2 % %] (01/19/17 8:36 PM) Basophils [0.0-1.0 0.3 % %] (01/19/17 8:36 PM) Segs-Bands # 6.2 K/CMM [1.5-8.1 K/CMM] (01/19/17 8:36 PM) Lymphocytes # 2.4 K/CMM [1.0-5.5 K/CMM] (01/19/17 8:36 PM) Monocytes # [0.0-0.8 0.6 K/CMM K/CMM] (01/19/17 8:36 PM) Eosinophils # 0.2 K/CMM [0.0-0.5 K/CMM] (01/19/17 8:36 PM) PT [12.0-14.7 11.9 seconds seconds] *LOW* (01/19/17 8:36 PM) INR [0.85-1.17] 0.86 (01/19/17 8:36 PM) PTT [22.9-35.8 30.0 seconds seconds] (01/19/17 8:36 PM) Immunizations No data available for this section Procedures Procedure Date Related Diagnosis Body Site Back surgery 2007 Back surgery 1994 Social History Social History Type Response Smoking Status Never smoker; Exposure to Tobacco Smoke None; Cigarette Smoking Last 365 Days No; Reg Smoking Cessation Counseling No Assessment and Plan No data available for this section
--- OUTSIDE RECORDS SUMMARY | 2019-01-06 08:04 | XMS REPORT | Summary of Care ---
Author Author [facility] Organization [facility] Address Unknown Phone Unavailable Encounter SKIP Galdamez(RAMÍREZ) [id number] Date(s): 02/26/17 - 02/26/[address] [facility] [address], [place], [place] [address] [phone] Discharge Diagnosis: Accelerated essential hypertension Discharge Diagnosis: Aching headache Discharge Diagnosis: Atypical chest pain Discharge Disposition: Home or Self Care Attending Physician: Louis Canales MD Vital Signs Most recent to 1 2 oldest [Reference Range]: Height 177.8 cm (02/26/17 4:08 PM) Temperature Oral 98.3 DegF [96.4-99.1 DegF] (02/26/17 4:08 PM) Blood Pressure 136/75 mmHg 154/89 mmHg [90-140/60-90 mmHg] (02/26/17 6:00 PM) *HI* (02/26/17 4:08 PM) Respiratory Rate 18 BRMIN 20 BRMIN [14-20 BRMIN] (02/26/17 6:00 PM) (02/26/17 4:08 PM) Peripheral Pulse 78 bpm 75 bpm Rate [60-100 bpm] (02/26/17 6:00 PM) (02/26/17 4:08 PM) Weight 110.568 kg (02/26/17 4:08 PM) Body Mass Index 34.98 m2 (02/26/17 4:08 PM) Problem List Condition Effective Dates Status Health Status Informant Anxiety disorder1 08/07/12 Active Chronic Active pain(Confirmed) Stroke(Confirmed) Resolved Gastroesophageal 08/07/12 Active reflux disease2 GERD Active (gastroesophageal reflux disease)(Confirmed) Elevated Resolved cholesterol(Confirme d) HTN Active (hypertension)(Confi rmed) Low back pain3 [...] Adverse Reactions, Alerts Substance Reaction Severity Status Latex Active NKDA Active Medications aspirin 81 mg tablet, chewable 81 mg, 1 tab, Route: CHEW, Drug form: CHEWTAB, ONCE, Dosing Weight 111.364, kg, Priority: STAT, Start date: 02/26/17 16:25:00 CDT, Stop date: 02/26/17 16:25:00 CDT Notes: Take with food. Start Date: 02/26/17 Stop Date: 02/26/17 Status: Completed diphenhydrAMINE 12.5 mg, 0.25 mL, Route: IVP, Drug form: INJ, ONCE, Dosing Weight 110.568, kg, P riority: STAT, Start date: 02/26/17 17:39:00 CDT, Stop date: 02/26/17 17:39:00 C DT Notes: (Same as: Benadryl) Start Date: 02/26/17 Stop Date: 02/26/17 Status: Completed ketOROLAC 30 mg, 1 mL, Route: IVP, Drug form: INJ, ONCE, Dosing Weight 111.364, kg, Priori ty: STAT, Start date: 02/26/17 16:25:00 CDT, Stop date: 02/26/17 16:25:00 CDT Notes: (Same as:Toradol) IV bolus must be given >15 seconds. Give IM administration slowly and deeply into the muscle.Not for use > 4 days MEDICATION WASTE Product Size: 30 mgProduct Wasted: 0 mg Start Date: 02/26/17 Stop Date: 02/26/17 Status: Completed metoclopramide 10 mg, 2 mL, Route: IVP, Drug form: INJ, ONCE, Dosing Weight 111.364, kg, Priori ty: STAT, Start date: 02/26/17 16:25:00 CDT, Stop date: 02/26/17 16:25:00 CDT Notes: (Same as: Reglan) Start Date: 02/26/17 Stop Date: 02/26/17 Status: Completed morphine Sulfate 2 mg, 1 mL, Route: IVP, Drug form: SOLN, ONCE, Dosing Weight 110.568, kg, Priori ty: STAT, Start date: 02/26/17 17:39:00 CDT, Stop date: 02/26/17 17:39:00 CDT Start Date: 02/26/17 Stop Date: 02/26/17 Status: Deleted morphine Sulfate 2 mg, 1 mL, Route: IVP, Drug form: INJ, ONCE, Dosing Weight 110.568, kg, Priorit y: STAT, Start date: 02/26/17 17:48:00 CDT, Stop date: 02/26/17 17:48:00 CDT Notes: (Same as:MORPhine Sulfate) Start Date: 02/26/17 Stop Date: 02/26/17 Status: Completed Saline Flush 0.9% 10 mL, Route: IVP, Drug Form: INJ, Dosing Weight 111.364, kg, PRN, PRN Line Flus h, Start date: 02/26/17 16:25:00 CDT, Duration: 30 day, Stop date: 03/28/17 15:2 4:00 [employer]PER Notes: (Same as: BD Posiflush) Start Date: 02/26/17 Stop Date: 02/26/17 Status: Discontinued Results ELECTROLYTES Most recent to 1 oldest [Reference Range]: Sodium Lvl [135-145 140 mEq/L mEq/L] (02/26/17 4:31 PM) Potassium Lvl 3.8 mEq/L [3.5-5.1 mEq/L] (02/26/17 4:31 PM) Chloride Lvl [95-109 106 mEq/L mEq/L] (02/26/17 4:31 PM) CO2 [24-32 mEq/L] 23 mEq/L *LOW* (02/26/17 4:31 PM) AGAP [10.0-20.0 14.8 mEq/L mEq/L] (02/26/17 4:31 PM) CHEM PANEL Most recent to 1 oldest [Reference Range]: Creatinine Lvl 1.09 mg/dL [0.50-1.40 mg/dL] (02/26/17 4:31 PM) eGFR 75 mL/min/1.73m2 1 *NA* (02/26/17 4:31 PM) BUN [7-22 mg/dL] 18 mg/dL (02/26/17 4:31 PM) B/C Ratio [6-25] 17 (02/26/17 4:31 PM) Glucose Lvl [70-99 94 mg/dL mg/dL] (02/26/17 4:31 PM) Total Protein 7.5 g/dL [6.4-8.4 g/dL] (02/26/17 4:31 PM) Albumin Lvl [3.5-5.0 3.6 g/dL g/dL] (02/26/17 4:31 PM) Globulin [2.7-4.2 3.9 g/dL g/dL] (02/26/17 4:31 PM) A/G Ratio [0.7-1.6] 0.9 (02/26/17 4:31 PM) Calcium Lvl 8.4 mg/dL [8.5-10.5 mg/dL] *LOW* (02/26/17 4:31 PM) ALT [0-65 unit/L] 35 unit/L (02/26/17 4:31 PM) AST [0-37 unit/L] 18 unit/L (02/26/17 4:31 PM) Alk Phos [39-136 103 unit/L unit/L] (02/26/17 4:31 PM) Bili Total [0.2-1.3 0.5 mg/dL mg/dL] (02/26/17 4:31 PM) 1Result Comment: The eGFR is calculated [...] 1 oldest [Reference Range]: Total CK [12-191 80 unit/L unit/L] (02/26/17 4:31 PM) Troponin-I <0.02 ng/mL [0.00-0.40 ng/mL] (02/26/17 4:31 PM) URINE AND STOOL Most recent to 1 oldest [Reference Range]: UA Turbidity [Clear] Clear (02/26/17 4:36 PM) UA Color [Yellow] Yellow *NA* (02/26/17 4:36 PM) UA pH [5.0-8.0] 6.0 (02/26/17 4:36 PM) UA Spec Grav <=1.005 [<=1.030] *NA* (02/26/17 4:36 PM) UA Glucose Negative [Negative] (02/26/17 4:36 PM) UA Blood [Negative] Negative (02/26/17 4:36 PM) UA Ketones Negative [Negative] *NA* (02/26/17 4:36 PM) UA Protein Negative [Negative] (02/26/17 4:36 PM) UA Urobilinogen 0.2 EU/dL [0.1-1.0 EU/dL] (02/26/17 4:36 PM) UA Bili [Negative] Negative *NA* (02/26/17 4:36 PM) UA Leuk Est Negative [Negative] (02/26/17 4:36 PM) UA Nitrite Negative [Negative] (02/26/17 4:36 PM) UA WBC [None Seen] None Seen (02/26/17 4:36 PM) UA RBC [0-2] None Seen (02/26/17 4:36 PM) UA Bacteria [None None Seen Seen] (02/26/17 4:36 PM) UA Sq Epi [Few] None Seen (02/26/17 4:36 PM) HEMATOLOGY Most recent to 1 oldest [Reference Range]: WBC [3.7-10.4 K/CMM] 8.9 K/CMM (02/26/17 4:31 PM) RBC [4.70-6.10 5.22 M/CMM M/CMM] (02/26/17 4:31 PM) Hgb [14.0-18.0 g/dL] 15.1 g/dL (02/26/17 4:31 PM) Hct [42.0-54.0 %] 44.7 % (02/26/17 4:31 PM) MCV [80.0-94.0 fL] 85.6 fL (02/26/17:31 PM) MCH [27.0-31.0 pg] 29.0 pg (02/26/17:31 PM) MCHC [32.0-36.0 33.8 g/dL g/dL] (02/26/17:31 PM) RDW [11.5-14.5 %] 12.1 % (02/26/17:31 PM) Platelet [133-450 350 K/CMM K/CMM] (02/26/17:31 PM) MPV [7.4-10.4 fL] 7.7 fL (02/26/17 4:31 PM) Segs [45.0-75.0 %] 65.1 % (02/26/17 4:31 PM) Lymphocytes 25.6 % [20.0-40.0 %] (02/26/17 4:31 PM) Monocytes [2.0-12.0 5.9 % %] (02/26/17 4:31 PM) Eosinophils [0.0-4.0 3.2 % %] (02/26/17 4:31 PM) Basophils [0.0-1.0 0.2 % %] (02/26/17 4:31 PM) Segs-Bands # 5.8 K/CMM [1.5-8.1 K/CMM] (02/26/17 4:31 PM) Lymphocytes # 2.3 K/CMM [1.0-5.5 K/CMM] (02/26/17 4:31 PM) Monocytes # [0.0-0.8 0.5 K/CMM K/CMM] (02/26/17 4:31 PM) Eosinophils # 0.3 K/CMM [0.0-0.5 K/CMM] (02/26/17 4:31 PM) D-Dimer 0.42 ug/mL FEU *NA* (02/26/17 4:31 PM) Immunizations No data available for this section Procedures Procedure Date Related Diagnosis Body Site Back surgery 2007 Back surgery 1994 PFO - Closure of patent foramen ovale Social History Social History Type Response Smoking Status Never smoker; Exposure to Tobacco Smoke None; Cigarette Smoking Last 365 Days No; Reg Smoking Cessation Counseling No Assessment and Plan No data available for this section
--- OUTSIDE RECORDS SUMMARY | 2019-01-06 08:04 | XMS REPORT | Summary of Care ---
Author Author [facility] Organization [facility] [place] Address Unknown Phone Unavailable Encounter SKIP Galdamez(RAMÍREZ) [id number] Date(s): 03/08/18 - 04/06/18 [facility] [place] Encounter Diagnosis Sprain of other specified parts of right knee, subsequent encounter (Final) - 04/11/18 Pain in right knee (Final) - Localized swelling, mass and lump, right lower limb (Final) - Other abnormalities of gait and mobility (Final) - Weakness (Final) - Discharge Disposition: Home or Self Care Attending Physician: Alex Ferro MD Vital Signs No data available for this section Problem List Condition Effective Dates Status Health [...] Adverse Reactions, Alerts Substance Reaction Severity Status penicillin Active NKDA Active Latex Active Medications No data available for this section Results No data available for this section Immunizations No data available for this section Procedures Procedure Date Related Diagnosis Body Site Status Back surgery 2007 Completed Back surgery 1994 Completed PFO - Closure of patent foramen ovale Completed Social History Social History Type Response Smoking Status Never smoker; Exposure to Tobacco Smoke None; Cigarette Smoking Last 365 Days No; Reg Smoking Cessation Counseling No entered on: 08/12/18 Assessment and Plan No data available for this section
--- OUTSIDE RECORDS SUMMARY | 2019-01-06 08:04 | XMS REPORT | Summary of Care ---
Author Author [facility] Organization [facility] [place] Address Unknown Phone Unavailable Encounter SKIP Galdamez(FIN) [id number] Date(s): 06/10/18 - 07/09/18 [facility] [place] Discharge Disposition: Home or Self Care Attending [...] Smoking Cessation Counseling No entered on: 12/14/17 Assessment and Plan No data available for this section
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
--- OUTSIDE RECORDS SUMMARY | 2019-01-06 08:04 | XMS REPORT | Summary of Care ---
Author Author [facility] [employer] Organization [facility] [place] Address Unknown Phone Unavailable Encounter SKIP Galdamez(FIN) [id number] Date(s): 10/02/18 - 10/19/18 [facility] [place] Discharge Disposition: Still a patient Attending Physician: Keyur Sorto MD Vital Signs No data available for [...]
--- OUTSIDE RECORDS SUMMARY | 2019-01-06 08:04 | XMS REPORT | Summary of Care ---
Author Author [facility] Organization [facility] Address Unknown Phone Unavailable Encounter SKIP Galdamez(RAMÍREZ) [id number] Date(s): 02/08/17 - 02/09/17 [facility] [address] [employer] provided by [facility] [place] [address]- Discharge Disposition: Home or Self Care Attending Physician: Amado Koch MD Admitting Physician: Amado Koch MD Referring Physician: Amado Koch MD Vital Signs 1 2 3 Most recent to oldest [Reference Range]: 177.8 cm (02/08/17 7:17 AM) Height 98.0 DegF (02/09/17 7:00 AM) 98.4 DegF (02/08/17 7:15 AM) Temperature Oral [96.4-99.1 DegF] 110/78 mmHg (02/09/17 7:00 AM) 119/73 mmHg (02/09/17 4:30 AM) 110/63 mmHg (02/08/17 9:00 PM) Blood Pressure [90-140/60-90 mmHg] 20 BRMIN (02/09/17 7:00 AM) Respiratory Rate [14-20 BRMIN] 111.364 kg (02/08/17 7:17 AM) Weight 35.23 m2 (02/08/17 7:17 AM) Body Mass Index Problem List Condition [...] Substance Reaction Severity Status NKDA Active Medications acetaminophen-codeine #3 1 tab, Route: PO, Drug Form: TAB, Dosing Weight 111.364, kg, Q4H, PRN Pain Score 4-6, Start date: 02/08/17 11:09:00 CDT, Duration: 30 day, Stop date: 03/10/17 1 1:08:00 CDT Notes: Do not exceed 4gm/day of acetaminophen. (Same as: Tylenol with Codeine # 3) Start Date: 02/08/17 Stop Date: 02/09/17 Status: Discontinued amLODIPine 5 mg, PO, Daily, PRN Hypertension, 0 Refill(s) Start Date: 02/08/17 Status: Ordered aspirin 81 mg, 1 tab, Route: PO, Drug form: ECTAB, Daily, Dosing Weight 111.364, kg, Sta rt date: 02/09/17 9:00:00 CDT, Duration: 30 day, Stop date: 03/10/17 9:00:00 CDT Notes: Do not crush or chew.(Same As: Ecotrin) Start Date: 02/09/17 Stop Date: 02/09/17 Status: Discontinued aspirin 81 mg tablet, enteric coated 81 mg=1 tab, PO, Daily, # 90 tab, 3 Refill(s) Start Date: 02/08/17 Status: Ordered aspirin 81 mg tablet, enteric coated 81 mg=1 tab, PO, Daily, # 90 tab, 3 Refill(s) Start Date: 02/08/17 Stop Date: 02/08/17 Status: Discontinued atorvastatin 10 mg oral tablet 10 mg=1 tab, PO, Bedtime, # 30 tab, 0 Refill(s) Start Date: 02/08/17 Status: Ordered clopidogrel 75 mg, 1 tab, Route: PO, Drug form: TAB, Daily, Dosing Weight 111.364, kg, Start date: 02/09/17 9:00:00 CDT, Duration: 30 day, Stop date: 03/10/17 9:00:00 CDT Notes: (Same As: Plavix) Start Date: 02/09/17 Stop Date: 02/09/17 Status: Discontinued clopidogrel 75 mg oral tablet 75 mg, PO, Daily, # 30 tab, 0 Refill(s) Start Date: 02/08/17 Status: Ordered meloxicam 7.5 mg oral tablet 7.5 mg=1 tab, PO, Daily, PRN Pain, # 30 tab, 1 Refill(s) Start Date: 02/08/17 Stop Date: 02/08/17 Status: Deleted pregabalin 300 mg oral capsule See Instructions, 2 caps at bedtime by mouth, 0 Refill(s) Start Date: 02/08/17 Status: Ordered Results BLOOD BANK RESULTS Most recent to 1 oldest [Reference Range]: ABO/Rh A POS *Unknown* (02/08/17 7:20 AM) Antibody Scrn Negative (02/08/17 7:20 AM) ELECTROLYTES Most recent to 1 2 oldest [Reference Range]: Sodium Lvl [135-145 140 mEq/L 142 mEq/L mEq/L] (02/09/17 4:26 AM) (02/08/17 7:20 AM) Potassium Lvl 4.0 mEq/L 4.5 mEq/L [3.5-5.1 mEq/L] (02/09/17 4:26 AM) (02/08/17 7:20 AM) Chloride Lvl [95-109 106 mEq/L 106 mEq/L mEq/L] (02/09/17 4:26 AM) (02/08/17 7:20 AM) CO2 [24-32 mEq/L] 24 mEq/L 30 mEq/L (02/09/17 4:26 AM) (02/08/17 7:20 AM) AGAP [10.0-20.0 14.0 mEq/L 10.5 mEq/L mEq/L] (02/09/17 4:26 AM) (02/08/17 7:20 AM) CHEM PANEL Most recent to 1 2 oldest [Reference Range]: Creatinine Lvl 0.86 mg/dL 0.95 mg/dL [0.50-1.40 mg/dL] (02/09/17 4:26 AM) (02/08/17 7:20 AM) eGFR 97 mL/min/1.73m2 1 89 mL/min/1.73m2 2 *NA* *NA* (02/09/17 4:26 AM) (02/08/17 7:20 AM) BUN [7-22 mg/dL] 14 mg/dL 17 mg/dL (02/09/17 4:26 AM) (02/08/17 7:20 AM) Glucose Lvl [70-99 104 mg/dL 104 mg/dL mg/dL] *HI* *HI* (02/09/17 4:26 AM) (02/08/17 7:20 AM) Calcium Lvl 8.6 mg/dL 9.3 mg/dL [8.5-10.5 mg/dL] (02/09/17 4:26 AM) (02/08/17 7:20 AM) 1Result Comment: The eGFR is calculated [...] be mul tiplied by the estimated BMI. HEMATOLOGY Most recent to 1 2 oldest [Reference Range]: WBC [3.7-10.4 K/CMM] 7.2 K/CMM (02/08/17 7:20 AM) RBC [4.70-6.10 5.09 M/CMM M/CMM] (02/08/1720 AM) Hgb [14.0-18.0 g/dL] 14.7 g/dL (02/08/17 7:20 AM) Hct [42.0-54.0 %] 42.9 % (02/08/17 AM) MCV [80.0-94.0 fL] 84.4 fL (02/08/17: AM) MCH [27.0-31.0 pg] 28.8 pg (02/08/17: AM) MCHC [32.0-36.0 34.1 g/dL g/dL] (02/08/17 7:20 AM) RDW [11.5-14.5 %] 13.2 % (02/08/17 7:20 AM) Platelet [133-450 287 K/CMM K/CMM] (02/08/17 7:20 AM) MPV [7.4-10.4 fL] 7.0 fL *LOW* (02/08/17:20 AM) Segs [45.0-75.0 %] 50.0 % (02/08/17 7:20 AM) Lymphocytes 37.4 % [20.0-40.0 %] (02/08/17 7:20 AM) Monocytes [2.0-12.0 7.8 % %] (02/08/17 7:20 AM) Eosinophils [0.0-4.0 4.2 % %] *HI* (02/08/1720 AM) Basophils [0.0-1.0 0.6 % %] (02/08/17 7:20 AM) Segs-Bands # 3.6 K/CMM [1.5-8.1 K/CMM] (02/08/17 7:20 AM) Lymphocytes # 2.7 K/CMM [1.0-5.5 K/CMM] (02/08/17 7:20 AM) Monocytes # [0.0-0.8 0.6 K/CMM K/CMM] (02/08/17 7:20 AM) Eosinophils # 0.3 K/CMM [0.0-0.5 K/CMM] (02/08/17 7:20 AM) Anisocyte [None 1+ Seen] *ABN* (02/08/17 7:20 AM) PT [12.0-14.7 12.9 seconds seconds] (02/08/17 7:20 AM) INR [0.85-1.17] 0.95 (02/08/17 7:20 AM) PTT [22.9-35.8 30.0 seconds seconds] (02/08/17 7:20 AM) Immunizations No data available for this section Procedures Procedure Date Related Diagnosis Body Site Back surgery 2007 Back surgery 1994 Social History Social History Type Response Smoking Status Never smoker; Exposure to Tobacco Smoke None; Cigarette Smoking Last 365 Days No; Reg Smoking Cessation Counseling No Assessment and Plan Extracted from: Title: PFO Closure Note Author: Amado Koch MD Date: 02/08/17 TRANSCATHETER CLOSURE OF PATENT FORAMEN OVALE Date of Procedure: 02/08/2017 Packaging Clerk and Supervising Physician: Amado Koch MD Assistants: [...] using a 4F MP catheter and a [employer] wire which was advanced into the left superior pulmonary vein. The MP catheter was removed over a 0.035" [employer] superstiff 260 cm exchange length guidewire, [...] deployment, a tug-test was performed. After confirming stab ility, and successful sealing of the PFO on ICE, the device was released. Final fluoroscopic and ICE imaging showed stable appearance of the septal occluder device on the corresponding site to the PFO. At the conclusion of the procedure, the torvue and the ICE catheters were removed from the body. Local hemostasis was achieved by application of a xjisup-bu-jmiob suture after removal of the sheaths. 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 2. Remove groin sutures tomorrow [...] verified by MD Amado Churchill MD, MPH, [facility], [facility] Staff Vp Analysis [facility] [place], [facility] Addendum by August, Moderate sedation was provided with a total of intravenous fentanyl 100 mcg and midazolam Amado 2 mg. Lidocaine 1% was used for local anesthesia. Heart rate, rhythm, and pulse oximetry MD on were continuously recorded and monitored in real time throughout the procedure by a 02/08/2017 trained dedicated interventional cardiology catheterization laboratory RN under my direct 16:[address] Hairston was REILLY. Blood pressure was monitored in 5 minute increments. Total sedation time was 60 minutes. There was no complications from the sedation. I, Amado Koch, was present for and participated in the entire procedure including performance of nesbitt components and interpretation of data. I agree with fellow's plan as mentioned above.
--- OUTSIDE RECORDS SUMMARY | 2019-01-06 08:05 | XMS REPORT | Summary of Care ---
Author Author [facility] Organization [facility] Address Unknown Phone Unavailable Encounter HQ Denice(FIN) [id number] Date(s): 10/09/17 - 10/09/17 [facility] [address] [place], [place] [phone] Encounter Diagnosis Vertigo (Discharge Diagnosis) - 10/09/17 Discharge Disposition: Home or Self Care Attending Physician: Jcarlos Kendall MD Vital Signs 1 2 3 Most recent to oldest [Reference Range]: 177.8 cm (10/09/17 8:51 AM) Height 98.8 DegF (10/09/17 8:51 AM) Temperature Oral [96.4-99.1 DegF] 168/79 mmHg *HI* (10/09/17 11:35 AM) 163/99 mmHg *HI* (10/09/17 9:16 AM) 171/104 mmHg *HI* (10/09/17 8:51 AM) Blood Pressure [90-140/60-90 mmHg] 18 BRMIN (10/09/17 11:35 AM) 18 BRMIN (10/09/17 9:16 AM) 18 BRMIN (10/09/17 8:51 AM) Respiratory Rate [14-20 BRMIN] 78 bpm (10/09/17 11:35 AM) 67 bpm (10/09/17 9:16 AM) 73 bpm (10/09/17 8:51 AM) Peripheral Pulse Rate [60-100 bpm] 111.364 kg (10/09/17 8:51 AM) Weight 35.23 m2 (10/09/17 8:51 AM) Body Mass Index Problem List Condition [...] Alerts Substance Reaction Severity Status NKDA Active Latex Active Medications Benadryl 25 mg, Route: IVP, ONCE, Dosing Weight 111.364, kg, Priority: STAT, Start date: 10/09/17 10:32:00 CDT, Stop date: 10/09/17 10:32:00 CDT Start Date: 10/09/17 Stop Date: 10/09/17 Status: Completed Compazine 10 mg, Route: IV, ONCE, Dosing Weight 111.364, kg, Start date: 10/09/17 10:32:00 CDT, Stop date: 10/09/17 10:32:00 CDT Start Date: 10/09/17 Stop Date: 10/09/17 Status: Completed ketOROLAC 15 mg, Route: IVP, Drug form: INJ, ONCE, Dosing Weight 111.364, kg, Priority: ST AT, Start date: 10/09/17 8:57:00 CDT, Stop date: 10/09/17 8:57:00 CDT Start Date: 10/09/17 Stop Date: 10/09/17 Status: Completed meclizine 25 mg, Route: PO, Drug form: TAB, ONCE, Dosing Weight 111.364, kg, Priority: STA T, Start date: 10/09/17 8:56:00 CDT, Stop date: 10/09/17 8:56:00 CDT Start Date: 10/09/17 Stop Date: 10/09/17 Status: Completed meclizine 25 mg oral tablet 25 mg=1 tab, PO, TID, PRN for dizziness, # 20 tab, 0 Refill(s) Start Date: 10/09/17 Stop Date: 10/09/17 Status: Completed NS (Bolus) IV 1,000 mL, 1,000 ml/hr, Infuse Over: 1 hr, Route: IV, ONCE, Priority: STAT, Dosin g Weight 111.364 kg, Start date: 10/09/17 8:57:00 CDT, Stop date: 10/09/17 8:57: 00 CDT Start Date: 10/09/17 Stop Date: 10/09/17 Status: Completed Results ELECTROLYTES Most recent to 1 oldest [Reference Range]: Sodium Lvl [135-145 140 mEq/L mEq/L] (10/09/17 9:05 AM) Potassium Lvl 4.0 mEq/L [3.5-5.1 mEq/L] (10/09/17 9:05 AM) Chloride Lvl [95-109 105 mEq/L mEq/L] (10/09/17 9:05 AM) CO2 [24-32 mEq/L] 26 mEq/L (10/09/17 9:05 AM) AGAP [10.0-20.0 13.0 mEq/L mEq/L] (10/09/17 9:05 AM) CHEM PANEL Most recent to 1 oldest [Reference Range]: Creatinine Lvl 0.99 mg/dL [0.50-1.40 mg/dL] (10/09/17 9:05 AM) eGFR 84 mL/min/1.73m2 1 *NA* (10/09/17 9:05 AM) BUN [7-22 mg/dL] 14 mg/dL (10/09/17 9:05 AM) B/C Ratio [6-25] 14 (10/09/17 9:05 AM) Glucose Lvl [70-99 96 mg/dL mg/dL] (10/09/17 9:05 AM) Total Protein 7.0 g/dL [6.4-8.4 g/dL] (10/09/17 9:05 AM) Albumin Lvl [3.5-5.0 3.4 g/dL g/dL] *LOW* (10/09/17 9:05 AM) Globulin [2.7-4.2 3.6 g/dL g/dL] (10/09/17 9:05 AM) A/G Ratio [0.7-1.6] 0.9 (10/09/17 9:05 AM) Calcium Lvl 8.7 mg/dL [8.5-10.5 mg/dL] (10/09/17 9:05 AM) ALT [0-65 unit/L] 54 unit/L (10/09/17 9:05 AM) AST [0-37 unit/L] 25 unit/L (10/09/17 9:05 AM) Alk Phos [39-136 113 unit/L unit/L] (10/09/17 9:05 AM) Bili Total [0.2-1.3 0.5 mg/dL mg/dL] (10/09/17 9:05 AM) 1Result Comment: The eGFR is calculated [...] 1 oldest [Reference Range]: Total CK [12-191 53 unit/L unit/L] (10/09/17 9:05 AM) Troponin-I <0.02 ng/mL [0.00-0.40 ng/mL] (10/09/17 9:05 AM) URINE AND STOOL Most recent to 1 oldest [Reference Range]: UA Turbidity [Clear] Clear (10/09/17 9:30 AM) UA Color [Yellow] Light Yellow (10/09/17 9:30 AM) UA pH [5.0-8.0] 6.0 (10/09/17 9:30 AM) UA Spec Grav <=1.005 [<=1.030] *NA* (5/22/18 9:30 AM) UA Glucose Negative [Negative] (10/09/17 9:30 AM) UA Blood [Negative] Negative (10/09/17 9:30 AM) UA Ketones Negative [Negative] *NA* (10/09/17 9:30 AM) UA Protein Negative [Negative] (10/09/17 9:30 AM) UA Urobilinogen 0.2 EU/dL [0.1-1.0 EU/dL] (10/09/17 9:30 AM) UA Bili [Negative] Negative *NA* (10/09/17 9:30 AM) UA Leuk Est Negative [Negative] (10/09/17 9:30 AM) UA Nitrite Negative [Negative] (10/09/17 9:30 AM) UA WBC [None Seen] None Seen (10/09/17 9:30 AM) UA RBC [0-2] None Seen (10/09/17 9:30 AM) UA Bacteria [None None Seen Seen] (10/09/17 9:30 AM) UA Sq Epi [Few /LPF] Rare /LPF (10/09/17 9:30 AM) HEMATOLOGY Most recent to 1 oldest [Reference Range]: WBC [3.7-10.4 K/CMM] 7.6 K/CMM (10/09/17 9:05 AM) RBC [4.70-6.10 5.45 M/CMM M/CMM] (10/09/17 9:05 AM) Hgb [14.0-18.0 g/dL] 15.6 g/dL (10/09/17 9:05 AM) Hct [42.0-54.0 %] 46.3 % (10/09/17 9:05 AM) MCV [80.0-94.0 fL] 84.9 fL (10/09/17 9:05 AM) MCH [27.0-31.0 pg] 28.6 pg (10/09/17 9:05 AM) MCHC [32.0-36.0 33.7 g/dL g/dL] (10/09/17 9:05 AM) RDW [11.5-14.5 %] 13.0 % (10/09/17 9:05 AM) MPV [7.4-10.4 fL] 7.3 fL *LOW* (10/09/17 9:05 AM) Platelet [133-450 303 K/CMM K/CMM] (10/09/17 9:05 AM) Segs [45.0-75.0 %] 67.1 % (10/09/17 9:05 AM) Lymphocytes 25.2 % [20.0-40.0 %] (10/09/17 9:05 AM) Monocytes [2.0-12.0 5.8 % %] (10/09/17 9:05 AM) Eosinophils [0.0-4.0 1.6 % %] (10/09/17 9:05 AM) Basophils [0.0-1.0 0.3 % %] (10/09/17 9:05 AM) Segs-Bands # 5.2 K/CMM [1.5-8.1 K/CMM] (10/09/17 9:05 AM) Lymphocytes # 1.9 K/CMM [1.0-5.5 K/CMM] (10/09/17 9:05 AM) Monocytes # [0.0-0.8 0.4 K/CMM K/CMM] (10/09/17 9:05 AM) Eosinophils # 0.1 K/CMM [0.0-0.5 K/CMM] (10/09/17 9:05 AM) Immunizations No data available for this section Procedures Procedure Date Related Diagnosis Body Site Status Back surgery 2007 Completed Back surgery 1994 Completed PFO - Closure of patent foramen ovale Completed Social History Social History Type Response Smoking Status Never smoker; Exposure to Tobacco Smoke None; Cigarette Smoking Last 365 Days No; Reg Smoking Cessation Counseling No entered on: 10/09/17 Assessment and Plan No data available for this section
--- OUTSIDE RECORDS SUMMARY | 2019-01-06 08:05 | XMS REPORT | Summary of Care ---
Author Author [facility] [employer] Organization [facility] [place] Address Unknown Phone Unavailable Encounter SKIP Galdamez(RAMÍREZ) [id number] Date(s): 02/04/18 - 03/05/18 [facility] [place] Encounter Diagnosis Vertigo of central origin, unspecified ear (Final) - 03/09/18 Unsteadiness on feet (Final) - Dizziness and giddiness (Final) - Abnormal posture (Final) - Migraine, unspecified, not intractable, without status migrainosus (Final) - Essential (primary) hypertension (Final) - Facial weakness (Final) - Personal history of transient ischemic attack (TIA), and cerebral infarction wit hout residual deficits (Final) - Pain in right knee (Final) - Unspecified abnormalities of gait and mobility (Final) - Discharge Disposition: Home or Self [...]
--- OUTSIDE RECORDS SUMMARY | 2019-01-06 08:05 | XMS REPORT ---
Author Author [facility] Address Unknown Phone Unavailable Care Team Providers Care Log [place] Name Role Phone Unavailable Unavailable Problems This patient has no known problems. Allergies, Adverse Reactions, Alerts This patient has no known allergies or adverse reactions. Medications This patient has no known medications. Encounters Start Date/Time End Date/Time Encounter Type Admission Type Attending [facility] Care Department Encounter ID 2018-11-09 13:06:00 2018-11-09 13:06:00 Emergency E [id number]
--- OUTSIDE RECORDS SUMMARY | 2019-01-06 08:05 | XMS REPORT | Summary of Care ---
Author Author [facility] Organization [facility] Address Unknown Phone Unavailable Encounter HQ Denice(FIN) [id number] Date(s): 11/09/18 - 11/09/18 [facility] [address], [address] [place], [place] [phone]- [phone] Encounter Diagnosis Sprain of ankle, right (Discharge Diagnosis) - 11/09/18 Discharge Disposition: Home or Self Care Attending Physician: Nina Villalobos MD Vital Signs Most recent to 1 oldest [Reference Range]: Height 177.8 cm (11/09/18 1:34 PM) Temperature Oral 97.4 DegF [96.4-99.1 DegF] (11/09/18 1:34 PM) Blood Pressure 120/80 mmHg [90-140/60-90 mmHg] (11/09/18 1:34 PM) Respiratory Rate 18 BRMIN [14-20 BRMIN] (11/09/18 1:34 PM) Peripheral Pulse 80 bpm Rate [60-100 bpm] (11/09/18 1:34 PM) Weight 113.636 kg (11/09/18 1:34 PM) Body Mass Index 35.95 m2 (11/09/18 1:34 PM) Problem List Condition Effective Dates Status [...] Alerts Substance Reaction Severity Status penicillin Active Latex Active Medications Ultram 50 mg oral tablet 50 mg, Route: PO, Drug form: TAB, ONCE, Dosing Weight 113.636, kg, Priority: STA T, Start date: 11/09/18 13:36:00 CDT, Stop date: 11/09/18 13:36:00 CDT Start Date: 11/09/18 Stop Date: 11/09/18 Status: Completed Results No data available for [...] Smoking Cessation Counseling No entered on: 11/09/18 Assessment and Plan No data available for this section
--- OUTSIDE RECORDS SUMMARY | 2019-01-06 08:05 | XMS REPORT | Summary of Care ---
Author Author [facility] Organization [facility] Address Unknown Phone Unavailable Encounter SKIP Galdamez(RAMÍREZ) [id number] Date(s): 06/30/17 - 07/01/17 [facility] [address] [place] [address]- [phone] Encounter Diagnosis Nausea with vomiting, unspecified (Final) - 07/05/17 Diarrhea, unspecified (Final) - Dehydration (Final) - Unspecified abdominal pain (Final) - Essential (primary) hypertension (Final) - Hyperlipidemia, unspecified (Final) - Systemic inflammatory response syndrome (SIRS) of non-infectious origin without acute organ dysfunction (Final) - Anxiety disorder, unspecified (Final) - Gastro-esophageal reflux disease without esophagitis (Final) - Obesity, unspecified (Final) - Pure hypercholesterolemia, unspecified (Final) - Personal history of transient ischemic attack (TIA), and cerebral infarction wit hout residual deficits (Final) - Body mass index (BMI) 35.0-35.9, adult (Final) - Discharge Disposition: Home or Self Care Attending Physician: Lili Rosario MD Admitting Physician: Lili Rosario MD Vital Signs 1 2 3 Most recent to oldest [Reference Range]: 177.8 cm (06/30/17 10:35 PM) 177.8 cm (06/30/17 4:07 PM) Height 98.4 DegF (07/01/17 3:55 PM) 98.6 DegF (07/01/17 11:30 AM) 98.1 DegF (07/01/17 7:48 AM) Temperature Oral [96.4-99.1 DegF] 141/91 mmHg *HI* (07/01/17 3:55 PM) 138/92 mmHg (07/01/17 11:30 AM) 143/88 mmHg *HI* (07/01/17 7:48 AM) Blood Pressure [90-140/60-90 mmHg] 18 BRMIN (07/01/17 3:55 PM) 18 BRMIN (07/01/17 11:30 AM) 18 BRMIN (07/01/17 7:48 AM) Respiratory Rate [14-20 BRMIN] 88 bpm (07/01/17 3:55 PM) 85 bpm (07/01/17 11:30 AM) 70 bpm (07/01/17 7:48 AM) Peripheral Pulse Rate [60-100 bpm] 112.727 kg (06/30/17 10:35 PM) 113.182 kg (06/30/17 4:07 PM) Weight 35.66 m2 (06/30/17 10:35 PM) 35.8 m2 (06/30/17 4:07 PM) Body Mass Index Problem List Condition Effective [...] Severity Status NKDA Active Latex Active Medications famotidine 20 mg, 2 mL, Route: IVP, Drug form: INJ, ONCE, Dosing Weight 113.182, kg, Priori ty: STAT, Start date: 06/30/17 16:26:00 SCHOOL BUS DRIVER/CUSTODIAN, Stop date: 06/30/17 16:26:00 SCHOOL BUS DRIVER/CUSTODIAN Notes: (Same as: Pepcid)Can be dilute in 5-10cc NS IVP: Slow IV push over at le ast 2 minutes. Start Date: 06/30/17 Stop Date: 06/30/17 Status: Completed fentaNYL 50 microgram, Route: IVP, ONCE, Dosing Weight 113.182, kg, Priority: STAT, Start date: 06/30/17 19:12:00 SCHOOL BUS DRIVER/CUSTODIAN, Stop date: 06/30/17 19:12:00 SCHOOL BUS DRIVER/CUSTODIAN Start Date: 06/30/17 Stop Date: 06/30/17 Status: Completed fentaNYL 50 microgram, 1 mL, Route: IVP, Drug form: INJ, ONCE, Dosing Weight 113.182, kg, Priority: STAT, Start date: 06/30/17 16:49:00 SCHOOL BUS DRIVER/CUSTODIAN, Stop date: 06/30/17 16:49:00 SCHOOL BUS DRIVER/CUSTODIAN Notes: (Same as: Sublimaze) Preservative free. Start Date: 06/30/17 Stop Date: 06/30/17 Status: Completed GI cocktail 30 mL, Route: PO, Drug Form: SUSP, Dosing Weight 113.182, kg, ONCE, STAT, Start date: 06/30/17 16:49:00 SCHOOL BUS DRIVER/CUSTODIAN, Stop date: 06/30/17 16:49:00 SCHOOL BUS DRIVER/CUSTODIAN Notes: G.I. Cocktail=antacid with simethicone 22.5 mL - lidocaine viscous 7.5 mL Start Date: 06/30/17 Stop Date: 06/30/17 Status: Completed hydrALAZINE 10 mg, 0.5 mL, Route: IV, Drug form: INJ, Q6H, Dosing Weight 112.727, kg, PRN Hy pertension, sbp>160 or dbp>100, Start date: 07/01/17 1:10:00 SCHOOL BUS DRIVER/CUSTODIAN, Duration: 30 day, Stop date: 07/31/17 1:09:00 CDT Notes: (Same as: Apresoline)Push over 5 minutes Start Date: 07/01/17 Stop Date: 07/01/17 Status: Discontinued hydromorphone 0.5 mg, 0.25 mL, Route: IVP, Drug form: INJ, Q4H, Dosing Weight 112.727, kg, PRN Pain Score 7-10, Start date: 06/30/17 23:29:00 SCHOOL BUS DRIVER/CUSTODIAN, Duration: 30 day, Stop date: 07/30/17 23:28:00 CDT Notes: Same as Dilaudid Start Date: 06/30/17 Stop Date: 07/01/17 Status: Discontinued Lactated Ringers IV 1,000 mL 1,000 mL, Rate: 10 ml/hr, Infuse over: 100 hr, Route: IV, Dosing Weight 112.727 kg, Total Volume: 1,000, Start date: 06/30/17 22:49:00 SCHOOL BUS DRIVER/CUSTODIAN, Stop date: 07/30/17 21:49:00 CDT, 2.38, m2 Start Date: 06/30/17 Stop Date: 07/01/17 Status: Discontinued morphine Sulfate 2 mg, 0.5 mL, Route: IVP, Drug form: INJ, Q4H, Dosing Weight 113.182, kg, PRN Pa in Score 7-10, Start date: 06/30/17 22:49:00 SCHOOL BUS DRIVER/CUSTODIAN, Duration: 30 day, Stop date: 0 07/30/17 22:48:00 CDT Notes: (Same as:MORPhine Sulfate) Start Date: 06/30/17 Stop Date: 07/01/17 Status: Discontinued morphine Sulfate 4 mg, 1 mL, Route: IVP, Drug form: SOLN, ONCE, Dosing Weight 113.182, kg, Priori ty: STAT, Start date: 06/30/17 16:26:00 SCHOOL BUS DRIVER/CUSTODIAN, Stop date: 06/30/17 16:26:00 SCHOOL BUS DRIVER/CUSTODIAN Notes: (Same as:MORPhine Sulfate) Start Date: 06/30/17 Stop Date: 06/30/17 Status: Completed multivitamin 1 tab, CHEW, Daily, 0 Refill(s) Start Date: 06/30/17 Status: Ordered NexIUM 40 mg, PO, BID, 0 Refill(s) Start Date: 06/30/17 Status: Ordered normal saline 0.9% IV 1,000 mL 1,000 mL, Rate: 125 ml/hr, Infuse over: 8 hr, Route: IV, Dosing Weight 113.182 k g, Total Volume: 1,000, Priority: STAT, Start date: 06/30/17 18:59:00 SCHOOL BUS DRIVER/CUSTODIAN, Durat ion: 1 doses or times, Stop date: 07/01/17 2:58:00 SCHOOL BUS DRIVER/CUSTODIAN, 2.39, m2 Start Date: 06/30/17 Stop Date: 06/30/17 Status: Completed NS (Bolus) IV 1,000 mL, 1,000 ml/hr, Infuse Over: 1 hr, Route: IV, 1,000, Drug form: INJ, ONCE , Priority: STAT, Dosing Weight 113.182 kg, Start date: 06/30/17 16:31:00 SCHOOL BUS DRIVER/CUSTODIAN, S top date: 06/30/17 16:31:00 SCHOOL BUS DRIVER/CUSTODIAN Start Date: 06/30/17 Stop Date: 06/30/17 Status: Completed ondansetron 4 mg, 2 mL, Route: IVP, Drug form: INJ, Q6H, Dosing Weight 113.182, kg, PRN Naus ea & Vomiting, Start date: 06/30/17 22:49:00 SCHOOL BUS DRIVER/CUSTODIAN, Duration: 30 day, Stop date: 07/30/17 22:48:00 CDT Notes: (Same as: Dom) MEDICATION WASTE Product Size: 4 mgProduct Was sagrario: ___ mg Start Date: 06/30/17 Stop Date: 07/01/17 Status: Discontinued ondansetron 4 mg, 2 mL, Route: IVP, Drug form: INJ, ONCE, Dosing Weight 113.182, kg, Priorit y: STAT, Start date: 06/30/17 16:26:00 SCHOOL BUS DRIVER/CUSTODIAN, Stop date: 06/30/17 16:26:00 SCHOOL BUS DRIVER/CUSTODIAN Notes: (Same as: Dom) MEDICATION WASTE Product Size: 4 mgProduct Was sagrario: 0_ mg Start Date: 06/30/17 Stop Date: 06/30/17 Status: Completed Protonix 40 mg, Route: IVP, Drug form: INJ, Daily, Dosing Weight 112.727, kg, Patient is NPO, Start date: 07/01/17 9:00:00 SCHOOL BUS DRIVER/CUSTODIAN, Duration: 30 day, Stop date: 07/30/17 9:0 0:00 CDT Notes: For IV push reconstitute with 10 ml 0.9% sodium chloride and push over 2 minutes. (Same as: Protonix) Start Date: 07/01/17 Stop Date: 07/01/17 Status: Discontinued Saline Flush 0.9% 10 ml, Route: IVP, Drug Form: INJ, Dosing Weight 113.182, kg, PRN, PRN Line Flus h, Start date: 06/30/17 22:49:00 SCHOOL BUS DRIVER/CUSTODIAN, Duration: 30 day, Stop date: 07/30/17 23:4 8:00 CDT Notes: (Same as: BD Posiflush) Start Date: 06/30/17 Stop Date: 07/01/17 Status: Discontinued Saline Flush 0.9% 10 mL, Route: IVP, Drug Form: INJ, Dosing Weight 113.182, kg, PRN, PRN Line Flus h, Start date: 06/30/17 16:26:00 SCHOOL BUS DRIVER/CUSTODIAN, Duration: 30 day, Stop date: 07/30/17 17:2 5:00 CDT Notes: (Same as: BD Posiflush) Start Date: 06/30/17 Stop Date: 06/30/17 Status: Discontinued Sodium Chloride 0.9% IV 1,000 mL 1,000 mL, Rate: 125 ml/hr, Infuse over: 8 hr, Route: IV, Dosing Weight 113.182 k g, Total Volume: 1,000, Start date: 06/30/17 16:26:00 SCHOOL BUS DRIVER/CUSTODIAN, Stop date: 07/01/17 2 0:35:00 SCHOOL BUS DRIVER/CUSTODIAN, 2.39, m2 Start Date: 06/30/17 Stop Date: 06/30/17 Status: Discontinued Results ELECTROLYTES Most recent to 1 2 oldest [Reference Range]: Sodium Lvl [135-145 140 mEq/L 138 mEq/L mEq/L] (07/01/17 5:45 AM) (06/30/17 4:29 PM) Potassium Lvl 4.1 mEq/L 4.1 mEq/L [3.5-5.1 mEq/L] (07/01/17 5:45 AM) (06/30/17 4:29 PM) Chloride Lvl [95-109 107 mEq/L 106 mEq/L mEq/L] (07/01/17 5:45 AM) (06/30/17 4:29 PM) CO2 [24-32 mEq/L] 28 mEq/L 25 mEq/L (07/01/17 5:45 AM) (06/30/17 4:29 PM) AGAP [10.0-20.0 9.1 mEq/L 11.1 mEq/L mEq/L] *LOW* (06/30/17 4:29 PM) (07/01/17 5:45 AM) CHEM PANEL Most recent to 1 2 oldest [Reference Range]: Creatinine Lvl 1.01 mg/dL 1.07 mg/dL [0.50-1.40 mg/dL] (07/01/17 5:45 AM) (06/30/17 4:29 PM) eGFR 82 mL/min/1.73m2 1 77 mL/min/1.73m2 2 *NA* *NA* (07/01/17 5:45 AM) (06/30/17 4:29 PM) BUN [7-22 mg/dL] 12 mg/dL 13 mg/dL (07/01/17 5:45 AM) (06/30/17 4:29 PM) B/C Ratio [6-25] 12 (06/30/17 4:29 PM) Glucose Lvl [70-99 98 mg/dL 117 mg/dL mg/dL] (07/01/17 5:45 AM) *HI* (06/30/17 4:29 PM) Total Protein 7.3 g/dL [6.4-8.4 g/dL] (06/30/17 4:29 PM) Albumin Lvl [3.5-5.0 3.3 g/dL g/dL] *LOW* (06/30/17 4:29 PM) Globulin [2.7-4.2 4.0 g/dL g/dL] (06/30/17 4:29 PM) A/G Ratio [0.7-1.6] 0.8 (06/30/17 4:29 PM) Calcium Lvl 8.1 mg/dL 8.8 mg/dL [8.5-10.5 mg/dL] *LOW* (06/30/17 4:29 PM) (07/01/17 5:45 AM) Phosphorus [2.5-4.5 2.8 mg/dL mg/dL] (07/01/17 5:45 AM) Magnesium Lvl 2.1 mg/dL [1.8-2.4 mg/dL] (07/01/17 5:45 AM) ALT [0-65 unit/L] 34 unit/L (06/30/17 4:29 PM) AST [0-37 unit/L] 16 unit/L (06/30/17 4:29 PM) Alk Phos [39-136 111 unit/L unit/L] (06/30/17 4:29 PM) Bili Total [0.2-1.3 1.0 mg/dL mg/dL] (06/30/17 4:29 PM) Lipase Lvl [73-393 78 unit/L unit/L] (06/30/17 4:29 PM) 1Result Comment: The eGFR is calculated [...] 2 oldest [Reference Range]: Total CK [12-191 60 unit/L unit/L] (06/30/17 4:29 PM) CK MB [0.5-3.6 <1.0 ng/mL ng/mL] (06/30/17 4:29 PM) CK MB Index <1.7 [0.0-2.5] (06/30/17 4:29 PM) Troponin-I <0.02 ng/mL [0.00-0.40 ng/mL] (06/30/17 4:29 PM) HEMATOLOGY Most recent to 1 2 oldest [Reference Range]: WBC [3.7-10.4 K/CMM] 9.3 K/CMM 11.0 K/CMM (07/01/17 5:45 AM) *HI* (06/30/17:29 PM) RBC [4.70-6.10 5.31 M/CMM 5.89 M/CMM M/CMM] (07/01/17 5:45 AM) (06/30/17:29 PM) Hgb [14.0-18.0 g/dL] 15.5 g/dL 16.7 g/dL (07/01/17 5:45 AM) (06/30/17:29 PM) Hct [42.0-54.0 %] 45.3 % 49.6 % (07/01/17 5:45 AM) (06/30/17:29 PM) MCV [80.0-94.0 fL] 85.4 fL 84.2 fL (07/01/17 5:45 AM) (06/30/17:29 PM) MCH [27.0-31.0 pg] 29.2 pg 28.4 pg (07/01/17 5:45 AM) (06/30/17:29 PM) MCHC [32.0-36.0 34.2 g/dL 33.7 g/dL g/dL] (07/01/17 5:45 AM) (06/30/17 4:29 PM) RDW [11.5-14.5 %] 13.4 % 12.7 % (07/01/17 5:45 AM) (06/30/17:29 PM) MPV [7.4-10.4 fL] 7.3 fL 7.6 fL *LOW* (06/30/17:29 PM) (07/01/17 5:45 AM) Platelet [133-450 245 K/CMM 318 K/CMM K/CMM] (07/01/17 5:45 AM) (06/30/17 4:29 PM) Segs [45.0-75.0 %] 62.5 % 69.5 % (07/01/17 5:45 AM) (2/10/18 4:29 PM) Lymphocytes 28.1 % 23.4 % [20.0-40.0 %] (07/01/17 5:45 AM) (06/30/17 4:29 PM) Monocytes [2.0-12.0 6.8 % 5.1 % %] (07/01/17 5:45 AM) (06/30/17 4:29 PM) Eosinophils [0.0-4.0 2.3 % 1.8 % %] (07/01/17 5:45 AM) (06/30/17 4:29 PM) Basophils [0.0-1.0 0.3 % 0.2 % %] (07/01/17 5:45 AM) (06/30/17 4:29 PM) Segs-Bands # 5.8 K/CMM 7.6 K/CMM [1.5-8.1 K/CMM] (07/01/17 5:45 AM) (06/30/17 4:29 PM) Lymphocytes # 2.6 K/CMM 2.6 K/CMM [1.0-5.5 K/CMM] (07/01/17 5:45 AM) (06/30/17 4:29 PM) Monocytes # [0.0-0.8 0.6 K/CMM 0.6 K/CMM K/CMM] (07/01/17 5:45 AM) (06/30/17 4:29 PM) Eosinophils # 0.2 K/CMM 0.2 K/CMM [0.0-0.5 K/CMM] (07/01/17 5:45 AM) (06/30/17 4:29 PM) PT [12.0-14.7 13.1 seconds seconds] (07/01/17 5:45 AM) INR [0.85-1.17] 0.99 (07/01/17 5:45 AM) PTT [22.9-35.8 31.5 seconds seconds] (07/01/17 5:45 AM) Immunizations No data available for this section Procedures Procedure Date Related Diagnosis Body Site Status Back surgery 2007 Completed Back surgery 1994 Completed PFO - Closure of patent foramen ovale Completed Social History Social History Type Response Smoking Status Never smoker; Exposure to Tobacco Smoke None; Cigarette Smoking Last 365 Days No; Reg Smoking Cessation Counseling No entered on: 07/02/17 Assessment and Plan Extracted from: Title: GS Consult * Author: Anant Schroeder MD Date: 07/01/17 Impression and Plan Diagnosis SBO (small bowel obstruction) ([id number]-HR K56.609, Working, Medical). Course: Improving, Progressing as expected. Orders dc ngt, offer FL diet, home today on bland diet as tolerated. Extracted from: Title: History and Physical Author: Lili Rosario MD Date: 06/30/17 Nausea vomiting diarrhea probable gastroenteritis Abdominal pain Dehydration Hypertension Hyperlipidemia Systemic inflammatory response syndromewithout sepsis Plan: Admit to observation IV fluids NG tube to low intermittent suction Surgical consultation placed by ER physician As needed antiemetics and analgesia Stool studiesfor possible bacterial etiology Hold oral medications until tolerating p.o. intake SCDs Observation
--- OUTSIDE RECORDS SUMMARY | 2019-01-06 08:05 | XMS REPORT | Summary of Care ---
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) - Repeated falls (Final) - Hyperlipidemia, unspecified (Final) - 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 Ataxia, unspecified (Final) - Obesity, unspecified (Final) - Gastro-esophageal reflux disease without esophagitis (Final) - Essential (primary) hypertension (Final) - Dizziness (Discharge Diagnosis) - 12/15/17 Discharge Disposition: Home or Self Care Attending Physician: Bert Cantor MD Vital Signs 1 2 3 Most recent to oldest [Reference Range]: 177.8 cm (12/14/17 7:35 PM) 177.8 cm (12/14/17 6:23 PM) Height 98.2 DegF (12/14/17 8:00 PM) 98.2 DegF (12/14/17 7:15 PM) 98.3 DegF (12/14/17 6:23 PM) Temperature Oral [96.4-99.1 DegF] 110/67 mmHg (12/15/17 1:00 AM) 107/56 mmHg (12/14/17 9:00 PM) 117/71 mmHg (12/14/17 8:00 PM) Blood Pressure [90-140/60-90 mmHg] 16 BRMIN (12/15/17 1:00 AM) 19 BRMIN (12/14/17 9:00 PM) 16 BRMIN (12/14/17 8:00 PM) Respiratory Rate [14-20 BRMIN] 71 bpm (12/14/17 6:23 PM) Peripheral Pulse Rate [60-100 bpm] 113.182 kg (12/14/17 7:35 PM) 113.182 kg (12/14/17 6:23 PM) Weight 35.8 m2 (12/14/17 7:35 PM) 35.8 m2 (12/14/17 6:23 PM) Body Mass Index Problem List Condition [...] penicillin Active NKDA Active Latex Active Medications Visipaque 320mg/ml 60 mL, Route: IVP, Drug Form: SOLN, Dosing Weight 113.182, kg, ONCALL, STAT, Sta rt date: 12/14/17 21:57:00 CDT, Duration: 1 doses or times, Dose=2.2ml/kg, Max djaf=[id number] -- "To be infused by Radiology Staff ONLY" Start Date: 12/14/17 Stop Date: 12/14/17 Status: Completed Results BLOOD BANK RESULTS Most recent to 1 oldest [Reference Range]: ABO/Rh A POS *Unknown* (12/14/17 7:41 PM) Antibody Scrn Negative (12/14/17 7:41 PM) ELECTROLYTES Most recent to 1 oldest [Reference Range]: Sodium Lvl [135-145 133 mEq/L mEq/L] *LOW* (12/14/17 7:45 PM) Potassium Lvl 3.2 mEq/L [3.5-5.1 mEq/L] *LOW* (12/14/17 7:45 PM) Chloride Lvl [95-109 98 mEq/L mEq/L] (12/14/17 7:45 PM) CO2 [24-32 mEq/L] 28 mEq/L (12/14/17 7:45 PM) AGAP [10.0-20.0 10.2 mEq/L mEq/L] (12/14/17 7:45 PM) CHEM PANEL Most recent to 1 oldest [Reference Range]: Creatinine Lvl 1.21 mg/dL [0.50-1.40 mg/dL] (12/14/17 7:45 PM) eGFR 66 mL/min/1.73m2 1 *NA* (12/14/17 7:45 PM) BUN [7-22 mg/dL] 18 mg/dL (12/14/17 7:45 PM) Glucose Lvl [70-99 238 mg/dL mg/dL] *HI* (12/14/17 7:45 PM) Calcium Lvl 9.1 mg/dL [8.5-10.5 mg/dL] (12/14/17 7:45 PM) 1Result Comment: The eGFR is calculated [...] estimated BMI. HEMATOLOGY Most recent to 1 oldest [Reference Range]: WBC [3.7-10.4 K/CMM] 10.1 K/CMM (12/14/17 7:45 PM) RBC [4.70-6.10 5.14 M/CMM M/CMM] (12/14/17 7:45 PM) Hgb [14.0-18.0 g/dL] 15.5 g/dL (12/14/17 7:45 PM) Hct [42.0-54.0 %] 43.9 % (12/14/17 7:45 PM) MCV [80.0-94.0 fL] 85.4 fL (12/14/17 7:45 PM) MCH [27.0-31.0 pg] 30.1 pg (12/14/17 7:45 PM) MCHC [32.0-36.0 35.3 g/dL g/dL] (12/14/17 7:45 PM) RDW [11.5-14.5 %] 13.3 % (12/14/17 7:45 PM) MPV [7.4-10.4 fL] 7.4 fL (12/14/17 7:45 PM) Platelet [133-450 304 K/CMM K/CMM] (12/14/17 7:45 PM) Segs [45.0-75.0 %] 66.6 % (12/14/17 7:45 PM) Lymphocytes 25.1 % [20.0-40.0 %] (12/14/17 7:45 PM) Monocytes [2.0-12.0 5.4 % %] (12/14/17 7:45 PM) Eosinophils [0.0-4.0 2.3 % %] (12/14/17 7:45 PM) Basophils [0.0-1.0 0.6 % %] (12/14/17 7:45 PM) Neutrophils # 6.7 K/CMM [1.5-8.1 K/CMM] (12/14/17 7:45 PM) Lymphocytes # 2.5 K/CMM [1.0-5.5 K/CMM] (12/14/17 7:45 PM) Monocytes # [0.0-0.8 0.5 K/CMM K/CMM] (12/14/17 7:45 PM) Eosinophils # 0.2 K/CMM [0.0-0.5 K/CMM] (12/14/17 7:45 PM) Basophils # [0.0-0.2 0.1 K/CMM K/CMM] (12/14/17 7:45 PM) PT [12.0-14.7 12.7 seconds seconds] (12/14/17 7:45 PM) INR [0.85-1.17] 0.95 (12/14/17 7:45 PM) PTT [22.9-35.8 29.5 seconds seconds] (12/14/17 7:45 PM) Immunizations No data available for this [...] No entered on: 12/14/17 Assessment and Plan Extracted from: Title: Stroke Consult Note Author: Naveen Wynn MD Date: 12/14/17 Stroke History & Physical Patient: Jonny Tomlinson Chief Complaint: imbalance, [...] statin Allergies: Latex, penicillin Physical Exam: Vitals: VitalsTmp(F)Tmp(C)[id number] 12/15 01:00 [id number]------ 12/14 21:00 [id number]------ 12/14 20:[id number]------ 12/14 19:[id number]------ 12/14 18:[id number]---[id number]------ 24 Hr Tmax: 98.3F (36.83c) at 12/14 18:2324 Hr Tmin: 98.2F (36.78c) at 12/14 20:00 36 Hr Tmax: 98.3F (36.83c) at 12/14 18:2336 Hr Tmin: 98.2F (36.78c) at 12/14 20:00 [...] 2-neither 0 1c. LOC Commands open/close eyes, plater helper/release non-paretic hand; 0-both 1-one 2-neither 0 2. [...] 0-none 1-partial 2-complete 0 Total Labs: WBC 10.1(DEC 14) Hgb 15.5(DEC 14) Hct 43.9(DEC 14) Plt 304(DEC 14) Na L 133(DEC 14) K L 3.2(DEC 14) CO2 28(DEC 14) Cl 98(DEC 14) Cr 1.21(DEC 14) BUN 18(DEC 14) Glucose Random H 238(DEC 14) Ca 9.1(DEC 14) PT 12.7(DEC 14) INR 0.95(DEC 14) PTT 29.5(DEC 14) Imaging: Brain wo contrast MRI 12/14/2017 [...] We evaluated imaging and also discussed with residential solar sales consultant commissioner public works findings, and impression was that there was [...] ENT. 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 Villa, fellow commissioner public works. Chani Knox PGY-3 [place] Neurology Pt seen by me, discussed w/ [...]
--- OUTSIDE RECORDS SUMMARY | 2019-01-06 08:05 | XMS REPORT | Summary of Care ---
Author Author [facility] Outpatient Imaging [facility] Outpatient [facility] Address Unknown Phone Unavailable Encounter HQ Encntr_alirossy(FIN) [id number] Date(s): 09/20/17 - 09/20/17 [facility] Outpatient Imaging [facility] [address] [address], [place] [address]- Discharge Disposition: Home or Self Care Attending Physician: Jairo Ferro DO Vital Signs No data available for this [...] Severity Status NKDA Active Latex Active Medications No data [...] No entered on: 07/02/17 Assessment and Plan No data available for this section
--- OUTSIDE RECORDS SUMMARY | 2019-01-06 08:05 | XMS REPORT | Summary of Care ---
Author Author [facility] [employer] Organization [facility] [place] Address Unknown Phone Unavailable Encounter SKIP Galdamez(FIN) [id number] Date(s): 08/26/18 - 09/24/18 [facility] [place] Discharge Disposition: Home or Self Care Attending Physician: Keyur Sorto MD Vital Signs [...]
--- OUTSIDE RECORDS SUMMARY | 2019-01-06 08:05 | XMS REPORT | Summary of Care ---
Author Author [facility] [employer] Organization [facility] [place] Address Unknown Phone Unavailable Encounter HQ Rashaad_ruth ann(FIN) [id number] Date(s): 04/06/16 - 05/05/16 [facility] [place] Discharge Disposition: Home or Self Care Attending Physician: Enedelia Amaya DO Vital Signs No data available for this section Problem List Condition Effective Dates Status Health Status Informant Anxiety disorder1 08/07/12 Active Gastroesophageal 08/07/12 Active reflux disease2 Low back pain3 08/07/12 Active Tension-type 08/07/12 Active headache4 1Data migrated from [employer] on 10/17/14. 2Data migrated from [employer] on 10/17/14. 3Data migrated from [employer] on 10/17/14. 4Data migrated from [employer] on 10/17/14. Allergies, Adverse Reactions, Alerts Substance Reaction Severity Status NKDA Active Medications No data available for this section Results No data available for this section Immunizations No data available for this section Procedures No data available for this section Social History No data available for this section Assessment and Plan No data available for this section
--- OUTSIDE RECORDS SUMMARY | 2019-01-06 08:05 | XMS REPORT | Summary of Care ---
Author Author [facility] [employer] Organization [facility] [place] Address Unknown Phone Unavailable Encounter SKIP [employer](FIN) [id number] Date(s): 07/10/18 - 08/08/18 [facility] [place] Discharge Disposition: Home or Self Care Attending [...]
--- OUTSIDE RECORDS SUMMARY | 2019-01-06 08:05 | XMS REPORT | Summary of Care ---
Author Author THUAN MARTINEZ M.D. Organization Unknown Address [facility] Phone Unavailable Care Team Providers Care Circus Rider Name Role Phone THUAN MARTINEZ M.D. Unavailable Unavailable JOSEPH WILLSON MD Unavailable Unavailable ANAMIKA BLACK, GABRIELA Unavailable Unavailable Unavailable Unavailable Functional Status Name Dates Details Functional status health issues are not documented Status: Name Dates Details Cognitive status health issues are not documented Status: Problems Name Dates Details History of CVA (cerebrovascular accident) (V12.54, Z86.73) Status: Active GERD without esophagitis (530.81, K21.9) Status: Active Obesity (278.00, E66.9) Status: Active Patent foramen ovale (745.5, Q21.1) Status: Active Patellofemoral pain syndrome of both knees (719.46, M22.2X1) Status: Active Degenerative tear of posterior horn of medial meniscus of right knee (717.2, M23.321) Status: Active Primary localized osteoarthrosis of the knee, right (715.16, M17.11) Status: Active Medications Name Dates Details Aspirin 81 MG TABS TAKE 1 TABLET DAILY. Active Atorvastatin Calcium 10 MG Oral Tablet TAKE 1 TABLET DAILY. * Refills: 0 Active 90 Tablet Bottle Esomeprazole Magnesium 20 MG Oral Capsule Delayed Release TAKE 1 CAPSULE TWICE DAILY. * Refills: 0 Active Gabapentin 300 MG Oral Capsule TAKE 2 CAPSULE DAILY * Refills: 0 Active Allergies and Adverse Reactions Name Dates Details No Known Drug Allergies (Allergy) Status: Active Past Medical History Name Dates Details History of Patellofemoral stress syndrome of right knee (719.46, M22.2X1) Status: Resolved History of Sprain of other ligament of right knee, initial encounter (844.8, S83.8X1A) Status: Resolved History of Stroke (434.91, I63.9) Status: Resolved Procedures Procedure Dates Details History of Back Surgery Completed History of Wrist Surgery Completed History of Knee Surgery Completed Immunization Name Dates Details Immunizations not documented Social History Name Dates Details - Status: Name Dates Details Never smoker Vital Signs Date Test Result Details 22-Apr-20189:16 Weight 260 lb Status: Body Mass Index Calculated 37.31 kg/m2 Status: Body Surface Area Calculated 2.33 m2 Status: 3-Ijb-[id number]:11 Weight 252 lb Status: Body Mass Index Calculated 36.16 kg/m2 Status: Body Surface Area Calculated 2.3 m2 Status: Results Date Description Value Details Results not documented Plan of Care Name Dates Details Planned Observations Planned Goals not documented Interventions Provided Follow-ups/Referrals* Physical Therapy Referral Ortho; Done: 22 Apr 2018 Medications/Immunizations Administered* Triamcinolone Acetonide 40 MG/ML Injection Suspension Plan* Completed at Today's Appointment: * Injection * Steroid injection given into the right knee today. She tolerated the procedure well. * His main symptoms appear to be pain as opposed to mechanical symptoms. We therefore discussed the possibility of total knee arthroplasty. We will start with steroid injection today. Instructions Name Dates Details Instructions not documented Encounters Appointment; ANDRIA TAMEZ M.D. Encounter Diagnosis: Problem not documented On: 05-Jan-2017 13:00 Appointment; DERIAN CUEVAS Encounter Diagnosis: Problem not documented On: 30-Mar-2017 11:30 Appointment; THUAN MARTINEZ M.D. Encounter Diagnosis: Problem not documented On: 20-Feb-2018 8:30 Appointment; THUAN MARTINEZ M.D. Encounter Diagnosis: Problem not documented On: 27-Mar-2018 13:30 Appointment; THUAN MARTINEZ M.D. Encounter Diagnosis: Problem not documented On: 22-Apr-2018 9:30
--- OUTSIDE RECORDS SUMMARY | 2019-01-06 08:05 | XMS REPORT | Summary of Care ---
Author Author [facility] Organization [facility] Address Unknown Phone Unavailable Encounter HQ Denice(FIN) [id number] Date(s): 07/02/17 - 07/02/17 [facility] [address] [place], [place] [address]- [phone] Encounter Diagnosis Nausea with vomiting, unspecified (Final) - 07/06/17 Diarrhea, unspecified (Final) - Left upper quadrant pain (Final) - Right upper quadrant pain (Final) - Essential (primary) hypertension (Final) - Personal history of transient ischemic attack (TIA), and cerebral infarction wit hout residual deficits (Final) - Abdominal pain, bilateral upper quadrant (Discharge Diagnosis) - 07/02/17 Nausea, vomiting, and diarrhea (Discharge Diagnosis) - 07/02/17 Discharge Disposition: Home or Self Care Attending Physician: Louis Canales MD Vital Signs 1 2 3 Most recent to oldest [Reference Range]: 177.8 cm (07/02/17 10:21 AM) Height 98.0 DegF (07/02/17 3:51 PM) 98.5 DegF (07/02/17 1:30 PM) 98.4 DegF (07/02/17 12:30 PM) Temperature Oral [96.4-99.1 DegF] 134/79 mmHg (07/02/17 3:51 PM) 111/55 mmHg (07/02/17 1:30 PM) 112/60 mmHg (07/02/17 12:30 PM) Blood Pressure [90-140/60-90 mmHg] 20 BRMIN (07/02/17 3:51 PM) 20 BRMIN (07/02/17 1:30 PM) 20 BRMIN (07/02/17 12:30 PM) Respiratory Rate [14-20 BRMIN] 70 bpm (07/02/17 3:51 PM) 70 bpm (07/02/17 1:30 PM) 70 bpm (07/02/17 12:30 PM) Peripheral Pulse Rate [60-100 bpm] 113.239 kg (07/02/17 10:21 AM) Weight 35.82 m2 (07/02/17 10:21 AM) Body Mass Index Problem List Condition [...] Severity Status NKDA Active Latex Active Medications Bentyl 20 mg oral tablet 20 mg=1 tab, PO, QID, # 20 tab, 0 Refill(s) Start Date: 07/02/17 Status: Ordered promethazine + Sodium Chloride 0.9% IV 50 mL 25 mg, 1 mL, Route: IVPB, ONCE, Dosing Weight 113.239, kg, Priority: STAT, Start date: 07/02/17 11:21:00 COUNTY ASSESSOR, Stop date: 07/02/17 11:21:00 COUNTY ASSESSOR Notes: Do not give IV push. (Same as: Phenergan) Start Date: 07/02/17 Stop Date: 07/02/17 Status: Completed Reglan 10 mg oral tablet 10 mg, PO, Q6H, PRN nausea/vomiting, X 5 day, # 20 tab, 0 Refill(s) Start Date: 07/02/17 Stop Date: 07/07/17 Status: Completed Saline Flush 0.9% 10 mL, Route: IVP, Drug Form: INJ, Dosing Weight 113.239, kg, PRN, PRN Line Flus h, Start date: 07/02/17 11:20:00 COUNTY ASSESSOR, Duration: 30 day, Stop date: 08/01/17 12:1 9:00 CDT Notes: (Same as: BD Posiflush) Start Date: 07/02/17 Stop Date: 07/02/17 Status: Discontinued Sodium Chloride 0.9% (Bolus) IV 1,000 mL, 1000 ml/hr, Infuse Over: 1 hr, Route: IV, 1,000, Drug form: INJ, ONCE, Priority: STAT, Dosing Weight 113.239 kg, Start date: 07/02/17 11:20:00 COUNTY ASSESSOR, St op date: 07/02/17 11:20:00 COUNTY ASSESSOR Start Date: 07/02/17 Stop Date: 07/02/17 Status: Completed Zofran ODT 4 mg, 1 tab, Route: PO, Drug form: TABDIS, ONCE, Dosing Weight 113.239, kg, Prio rity: STAT, Start date: 07/02/17 10:33:00 COUNTY ASSESSOR, Stop date: 07/02/17 10:33:00 COUNTY ASSESSOR Notes: (Same as: Zofran ODT) Start Date: 07/02/17 Stop Date: 07/02/17 Status: Completed Results ELECTROLYTES Most recent to 1 oldest [Reference Range]: Sodium Lvl [135-145 139 mEq/L mEq/L] (07/02/17 10:46 AM) Potassium Lvl 4.0 mEq/L [3.5-5.1 mEq/L] (07/02/17 10:46 AM) Chloride Lvl [95-109 102 mEq/L mEq/L] (07/02/17 10:46 AM) CO2 [24-32 mEq/L] 30 mEq/L (07/02/17 10:46 AM) AGAP [10.0-20.0 11.0 mEq/L mEq/L] (07/02/17 10:46 AM) CHEM PANEL Most recent to 1 oldest [Reference Range]: Creatinine Lvl 1.04 mg/dL [0.50-1.40 mg/dL] (07/02/17 10:46 AM) eGFR 79 mL/min/1.73m2 1 *NA* (07/02/17 10:46 AM) BUN [7-22 mg/dL] 10 mg/dL (07/02/17 10:46 AM) B/C Ratio [6-25] 10 (07/02/17 10:46 AM) Glucose Lvl [70-99 96 mg/dL mg/dL] (07/02/17 10:46 AM) Total Protein 7.3 g/dL [6.4-8.4 g/dL] (07/02/17 10:46 AM) Albumin Lvl [3.5-5.0 3.4 g/dL g/dL] *LOW* (07/02/17 10:46 AM) Globulin [2.7-4.2 3.9 g/dL g/dL] (07/02/17 10:46 AM) A/G Ratio [0.7-1.6] 0.9 (07/02/17 10:46 AM) Calcium Lvl 8.8 mg/dL [8.5-10.5 mg/dL] (07/02/17 10:46 AM) ALT [0-65 unit/L] 24 unit/L (07/02/17 10:46 AM) AST [0-37 unit/L] 15 unit/L (07/02/17 10:46 AM) Alk Phos [39-136 99 unit/L unit/L] (07/02/17 10:46 AM) Bili Total [0.2-1.3 1.0 mg/dL mg/dL] (07/02/17 10:46 AM) Lipase Lvl [73-393 78 unit/L unit/L] (07/02/17 10:46 AM) 1Result Comment: The eGFR is calculated [...] Most recent to 1 oldest [Reference Range]: Troponin-I <0.02 ng/mL [0.00-0.40 ng/mL] (07/02/17 10:46 AM) URINE AND STOOL Most recent to 1 oldest [Reference Range]: UA Turbidity [Clear] Clear (07/02/17 10:46 AM) UA Color [Yellow] Yellow *NA* (07/02/17 10:46 AM) UA pH [5.0-8.0] 6.5 (07/02/17 10:46 AM) UA Spec Grav 1.010 [<=1.030] (07/02/17 10:46 AM) UA Glucose [Negative Negative mg/dL mg/dL] (07/02/17 10:46 AM) UA Blood [Negative] Negative (07/02/17 10:46 AM) UA Ketones [Negative Negative mg/dL mg/dL] *NA* (07/02/17 10:46 AM) UA Protein [Negative Negative mg/dL mg/dL] (07/02/17 10:46 AM) UA Urobilinogen 0.2 EU/dL [0.1-1.0 EU/dL] (07/02/17 10:46 AM) UA Bili [Negative] Negative *NA* (07/02/17 10:46 AM) UA Leuk Est Negative [Negative] (07/02/17 10:46 AM) UA Nitrite Negative [Negative] (07/02/17 10:46 AM) UA WBC [None Seen] None Seen (07/02/17 10:46 AM) UA RBC [0-2] None Seen (07/02/17 10:46 AM) UA Bacteria [None None Seen Seen] (07/02/17 10:46 AM) UA Sq Epi [Few /LPF] Rare /LPF (07/02/17 10:46 AM) UA Mucus [None Seen Moderate /LPF /LPF] *ABN* (07/02/17 10:46 AM) HEMATOLOGY Most recent to 1 oldest [Reference Range]: WBC [3.7-10.4 K/CMM] 8.3 K/CMM (07/02/17 10:46 AM) RBC [4.70-6.10 5.51 M/CMM M/CMM] (07/02/17 10:46 AM) Hgb [14.0-18.0 g/dL] 15.9 g/dL (07/02/17 10:46 AM) Hct [42.0-54.0 %] 47.1 % (07/02/17 10:46 AM) MCV [80.0-94.0 fL] 85.5 fL (07/02/17 10:46 AM) MCH [27.0-31.0 pg] 28.9 pg (07/02/17 10:46 AM) MCHC [32.0-36.0 33.8 g/dL g/dL] (07/02/17 10:46 AM) RDW [11.5-14.5 %] 12.5 % (07/02/17 10:46 AM) MPV [7.4-10.4 fL] 7.6 fL (07/02/17 10:46 AM) Platelet [133-450 299 K/CMM K/CMM] (07/02/17 10:46 AM) Segs [45.0-75.0 %] 60.1 % (07/02/17 10:46 AM) Lymphocytes 29.0 % [20.0-40.0 %] (07/02/17 10:46 AM) Monocytes [2.0-12.0 6.6 % %] (07/02/17 10:46 AM) Eosinophils [0.0-4.0 4.1 % %] *HI* (07/02/17 10:46 AM) Basophils [0.0-1.0 0.2 % %] (07/02/17 10:46 AM) Segs-Bands # 5.1 K/CMM [1.5-8.1 K/CMM] (07/02/17 10:46 AM) Lymphocytes # 2.4 K/CMM [1.0-5.5 K/CMM] (07/02/17 10:46 AM) Monocytes # [0.0-0.8 0.5 K/CMM K/CMM] (07/02/17 10:46 AM) Eosinophils # 0.3 K/CMM [0.0-0.5 K/CMM] (07/02/17 10:46 AM) Immunizations No data available for this [...]
--- OUTSIDE RECORDS SUMMARY | 2019-01-06 08:05 | XMS REPORT | Summary of Care ---
Author Author [facility] Organization [facility] Address Unknown Phone Unavailable Encounter HQ Rashaad_ruth ann(FIN) [id number] Date(s): 04/08/18 - 04/08/18 [facility] [address] [place] [place], [place] [address] [id number] Encounter Diagnosis Other tear of medial meniscus, current injury, right knee, initial encounter (Final) - 04/12/18 Chondromalacia, right knee (Final) - Localized edema (Final) - Discharge Disposition: Home or Self Care Attending Physician: Adryan Longoria MD Referring Physician: Adryan Longoria MD Vital Signs No data available for [...]
[2019-01-06 08:29] LABS: BASOPHILS % 0.5 % (0.0-1.0); EOSINOPHILS # (AUTO) 0.2 (0.0-0.4); EOSINOPHILS % 3.2 % (0.0-6.0); HEMATOCRIT 44.2 % (38.2-49.6); HEMOGLOBIN 15.7 g/dL (14.0-18.0); LYMPHOCYTES % 40.3 % (18.0-39.1); MEAN CORPUSCULAR HEMOGLOBIN 29.8 pg (28-32); MEAN CORPUSCULAR HGB CONC 35.5 g/dL (31-35); MONOCYTES # (AUTO) 0.5 (0.2-0.8); MONOCYTES % 6.8 % (4.4-11.3); NEUTROPHILS # (AUTO) 3.7 (2.1-6.9); NEUTROPHILS % 49.1 % (38.7-80.0); PLATELET COUNT 273 x10e3/uL (140-360); RED BLOOD COUNT 5.26 x10e6/uL (4.3-5.7); RED CELL DISTRIBUTION WIDTH 12.9 % (11.7-14.4)
[2019-01-06] MEDS ORDERED: ALBUTEROL/IPRATROPIUM 3 ML NEB NEB ONE (08:30)
[2019-01-06 08:43] LABS: BILIRUBIN,URINE NEGATIVE (NEGATIVE); CLARITY,URINE CLEAR (CLEAR); COLOR,URINE YELLOW (YELLOW); KETONES,URINE NEGATIVE (NEGATIVE); LEUKOCYTE ESTERASE ,URINE NEGATIVE (NEGATIVE); NITRITE,URINE NEGATIVE (NEGATIVE); PROTEIN,URINE DIPSTICK NEGATIVE (NEGATIVE); URINE UROBILINOGEN 0.2 mg/dL (0.2 - 1)
[2019-01-06 08:48] LABS: ALANINE AMINOTRANSFERASE 32 IU/L (0-55); ALBUMIN 3.5 g/dL (3.5-5.0); ALKALINE PHOSPHATASE 101 IU/L (40-150); ANION GAP 13.9 mmol/L (8-16); BLOOD UREA NITROGEN 17 mg/dL (7-26); BUN/CREATININE RATIO 16 (6-25); CALCIUM 9.2 mg/dL (8.4-10.2); CARBON DIOXIDE 22 mmol/L (22-29); CHLORIDE 103 mmol/L (98-107); CREATININE, SERUM 1.08 mg/dL (0.72-1.25); EST GLOMERULAR FILTRATION RATE > 60 ML/MIN (60-); GLUCOSE 103 mg/dL (74-118); POTASSIUM 3.9 mmol/L (3.5-5.1); SODIUM 135 mmol/L (136-145)
[2019-01-06 09:14] LABS: BACTERIA,URINE FEW /HPF; EPITHELIAL CELLS,URINE FEW /LPF
--- NOTE | 2019-01-06 09:19 | Diagnostic Imaging Report ---
Chest, 2 views, 01/06/2019. History: Shortness of breath. Comparison: None available. Findings: The cardiomediastinal silhouette and pulmonary vasculature are within normal limits. The lungs are clear without evidence of consolidation or pleural effusion. There are no acute osseous or soft tissue abnormalities. Loop recorder device is present. Impression: No acute cardiopulmonary abnormality. Signed by: Burak Garcia on 01/06/2019 9:15 AM
== END 2019-01-06 11:25 | disposition home or self-care (01) ==
LOC: ER 07:59
DX: R06.00 Dyspnea, unspecified (principal); R07.89 Other chest pain; J20.9 Acute bronchitis, unspecified
CPT/HCPCS: 36415; 71046; 80053; 81001; 83880; 84484; 85025; 93005; 94640; 99284